=== PATIENT | male | born 1940 | race Two or more races ===

== ENCOUNTER 2020-09-30 21:36 | Emergency (ER) | payer MEDICARE, SELFPAY ==
--- NOTE | 2020-09-30 | ECG_ITS ---
Test Reason : CHEST PAIN Blood Pressure : / mmHG Vent. Rate : 056 BPM Atrial Rate : 056 BPM P-R Int : 196 ms QRS Dur : 082 ms QT Int : 424 ms P-R-T Axes : 043 006 039 degrees QTc Int : 409 ms Sinus bradycardia Otherwise normal ECG When compared with ECG of 22-OCT-2017 10:24, No significant change was found Referred By: Generic ED Physician Electronically Signed By:YOLANDA LICONA
--- NOTE | ~2020-09-30 | XR_ITS ---
EXAMINATION: XR CHEST CLINICAL INFORMATION: Chest pain COMPARISON: 10/22/2018 TECHNIQUE: 2 views of the chest were obtained. FINDINGS: The lungs are clear with no focal consolidation. No evidence of pneumothorax, pulmonary edema, or pleural effusions. Cardiac size is within normal limits. The thoracic aorta is tortuous. No acute osseous findings are seen. XR/XR chest 2V IMPRESSION: No acute cardiopulmonary findings.
[2020-09-30 22:24] VITALS: BP 140/80; PULSE 55; RESP 18; TEMP 36.6; O2SAT 18; BMI 27.3
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
[2020-10-01 01:14] LABS: MANUAL DIFF FLAG NO
[2020-10-01 01:16] LABS: Basophils Percent Auto 0.2 % (0-2); Eosinophils Absolute Auto 0.2 X10*3/uL (0.0-0.4); Eosinophils Percent Auto 2.2 % (0-4); Hematocrit 41.9 % (42-52); Hemoglobin 14.4 g/dl (14.0-18.0); Imm Gran Abs Auto 0.01 X10*3/uL (0.00-0.03); Imm Gran Pct Auto 0.1 % (0.0-0.4); Lymphocytes Percent Auto 22.6 % (20-40); Mean Corpuscular HGB Conc 34.4 g/dl (31.0-36.0); Mean Corpuscular Volume 93.1 fL (80-98); Mean Platelet Volume 11.1 fL (9.4-12.4); Monocytes Absolute Auto 0.6 X10*3/uL (0.1-1.2); Monocytes Percent Auto 6.6 % (2-11); Neutrophils Absolute Auto 5.9 X10*3/uL (2.0-8.3); Neutrophils Percent Auto 68.3 % (45-73); Platelet Count 158 X10*3/uL (160-400); Red Cell Distribution Width 12.6 % (11.0-16.0); White Blood Count 8.6 X10*3/uL (4.8-10.8)
[2020-10-01 01:39] LABS: Blood Urea Nitrogen 18 mg/dL (9-16); Calcium 9.6 mg/dL (8.4-10.2); Creatinine Clr Calc Pharmacy 59.1; Estimated Glomerular Filt Rate > 60; Glucose Random 102 mg/dL (60-115)
[2020-10-01 01:45] LABS: Troponin-I High Sensitivity 4.8 ng/L (<3.5-35.0)
[2020-10-01 02:10] LABS: Anion Gap 12 (12-20); Carbon Dioxide 29 mmol/L (22-29); Chloride 105 mmol/L (96-108); Potassium 3.9 mmol/L (3.3-5.1); Sodium 142 mmol/L (135-145)
== END 2020-10-01 02:55 | disposition home or self-care (01) ==
PROVIDERS: Emergency Provider Emergency Medicine; PCP Internal Medicine
DX: R07.89 Other chest pain (principal); R00.1 Bradycardia, unspecified; Z73.3 Stress, not elsewhere classified; Z63.0 Problems in relationship with spouse or partner; I10 Essential (primary) hypertension; E78.5 Hyperlipidemia, unspecified
CPT/HCPCS: 36415; 71046; 80048; 84484; 85025; 93005; 99283; 99284

== ENCOUNTER 2020-10-05 13:03 | Outpatient (REF) | payer MEDICARE, SELFPAY ==
[2020-10-05 13:53] LABS: Alanine Aminotransferase 20 U/L (0-40); Albumin Level 4.3 g/dL (3.5-5.0); Alkaline Phosphatase 94 U/L (39-117); Anion Gap 14 (12-20); Aspartate Amino Transferase 21 U/L (5-37); Bilirubin Total 1.1 mg/dL (0.0-1.0); Blood Urea Nitrogen 19 mg/dL (9-16); Carbon Dioxide 27 mmol/L (22-29); Chloride 105 mmol/L (96-108); Estimated Glomerular Filt Rate > 60; Glucose Random 100 mg/dL (60-115); Potassium 3.9 mmol/L (3.3-5.1); Sodium 142 mmol/L (135-145); Total Protein 7.1 g/dL (6.5-8.0)
== END 2020-10-05 13:04 | disposition home or self-care (01) ==
LOC: HO.LAB 13:03
PROVIDERS: PCP Internal Medicine; Visit Provider Internal Medicine
DX: M10.9 Gout, unspecified (principal)
CPT/HCPCS: 36415; 80053

== ENCOUNTER → 2020-11-19 13:39 | Outpatient (BNVA) | payer MEDICARE, SELFPAY | PROVIDERS: PCP Internal Medicine; Referring Provider Internal Medicine; Visit Provider Internal Medicine | DX: R07.2 Precordial pain (principal); I63.9 Cerebral infarction, unspecified; Q24.8 Other specified congenital malformations of heart; G47.33 Obstructive sleep apnea (adult) (pediatric) | CPT/HCPCS: 93005; 99212 ==

== ENCOUNTER → 2020-11-27 08:34 | Outpatient (BNVA) | payer MEDICARE, SELFPAY | PROVIDERS: PCP Internal Medicine; Visit Provider Nurse Practitioner Family | CPT/HCPCS: Q3014 ==

== ENCOUNTER 2020-11-28 15:55 | Outpatient (REF) | payer MEDICARE, SELFPAY ==
--- NOTE | ~2020-11-28 | MR_ITS ---
EXAMINATION: MR BRAIN WITHOUT CONTRAST CLINICAL INFORMATION: Memory loss. Headaches. COMPARISON: CT head dated 09/09/2018 TECHNIQUE: MRI of the brain was obtained using routine sequences without contrast. FINDINGS: No areas of abnormally restricted diffusion within the brain parenchyma to suggest acute or subacute ischemia. There are a few scattered foci of subcortical white matter T2 prolongation statistically related to microangiopathic gliosis. Old left frontal lobe white matter lacunar infarct. No transcortical infarcts. No pathological magnetic susceptibility artifact is demonstrated. There is no intracranial mass, mass effect, or shift of midline structures. No abnormal extra axial fluid collection Mild generalized brain parenchymal volume loss. No atrophy pattern to suggest a specific type of dementia. No evidence of hydrocephalus. Posterior fossa structures are normal. The craniocervical junction is normal. Midline structures including the posterior pituitary bright spot are normal. The intracranial vascular flow voids including the major dural venous sinuses are preserved. Mastoid air cells are clear. The visualized paranasal sinuses are well-aerated. Mild mucosal thickening within the frontal sinuses and ethmoid air cells anteriorly. Aphakic globes. MR/MR head/brain wo con IMPRESSION: No acute or subacute intracranial pathology. Moderate chronic white matter small vessel ischemic changes. Generalized brain parenchymal volume loss without evidence of hydrocephalus.
== END 2020-11-28 15:56 | disposition home or self-care (01) ==
LOC: HO.MRI 15:55
PROVIDERS: PCP Internal Medicine; Visit Provider Internal Medicine
DX: I63.9 Cerebral infarction, unspecified (principal)
CPT/HCPCS: 70551

== ENCOUNTER → 2020-11-29 09:52 | Outpatient (REF) | payer MEDICARE, SELFPAY ==
--- NOTE | 2020-11-29 09:55 | CA_ITS ---
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 Study Quality: Fair ECG Rhythm: Sinus Conclusions: - 1. Normal LV systolic function with impaired relaxation filling pattern with elevated velocity across LVOT, most likely increased stroke volume 2. Mild aortic regurgitation 3. Mildly dilated ascending aorta 4. Normal RV systolic pressure 5. No pericardial effusion Findings Left Ventricle Normal left ventricular size, thickness, and systolic function. The visually estimated ejection fraction is between 60-65%. Spectral Doppler is indicative of an impaired relaxation filling pattern. E/E prime ratio is between 8 and 15 consistent with indeterminate filling pressures. Right Ventricle Normal right ventricular cavity size and systolic function. Atria The left atrium is mildly dilated. There is no evidence of interatrial shunt. The right atrium is likely dilated. Aortic Valve Normal aortic valve structure and function. There is no aortic valve stenosis. There is mild aortic valve regurgitation. Mitral Valve Normal mitral valve structure and function. There is trace mitral valve regurgitation. There is no mitral valve stenosis. Pulmonic Valve The pulmonic valve is likely normal. There is trace pulmonic valve regurgitation. Tricuspid Valve Normal tricuspid valve structure. There is trace tricuspid valve regurgitation. The right ventricular systolic pressure is normal. The right ventricular systolic pressure is 27 mmHg. Normal right atrial pressure. There is no evidence of pulmonary hypertension. Great Vessels The pulmonary artery was not well visualized. Venous The inferior vena cava is normal in size and collapses greater than 50% with inspiration. Pericardium/Pleural There is no evidence of pericardial effusion. Prior Study Comparison No significant change compared to prior study dated: 01/03/2019. Measurements 2D Linear Measurements IVSd: 0.97 0.6-0.9/0.6-1.0 cm LVIDd: 3.50 3.9-5.3/4.2-5.9 cm LVIDd Index: 1.64 2.4-3.2/2.2-3.1 cm/m2 LVIDs: 2.43 2.0-3.6 cm LVPWd: 0.98 0.7-1.1 cm Ao Root: 4.40 2.1-3.5 cm LA Diam: 3.20 2.7-3.8/3.0-4.0 cm LAIDs Index: 1.50 1.5-2.3 cm/m2 LV Mass: 123.76 67-162/88-224 g LV Mass Index: 58.11 43-95/49-115 g/m2 LVOT Diam: 2.20 3.0+(-)1.3 cm 2D Systolic Function EF 4C: 62.20 >55% EF 2C: 53.50 >55% EF BiP: 58.20 >55% Mitral Valve MV Pk E: 0.74 MV PK A: 0.93 MV Decel Time: 221.00 E/A: 0.80 PHT: 65.00 MVA PHT: 3.38 Decel Montague: 3.34 Aortic Valve AoV Pk Ba: 2.18 AoV Mn Ba: 1.51 AoV VTI: 0.45 AoV Pk Grad: 19.00 Aov Mn Grad: 11.00 GE Cont.VTI: 3.95 AI Pk Ba: 4.38 AI [place]ague: 1.65 LVOT LVOT Pk Ba: 1.99 LVOT Mn Ba: 1.42 LVOT VTI: 0.46 LVOT Pk Grad: 16.00 LVOT Mn Grad: 9.00 LVOT Diam: 2.20 LVOT Area: 3.80 Diastolic Function MV Pk E: 0.74 MV Pk A: 0.93 E/A: 0.80 Tricuspid Valve TR Pk Ba: 2.44 TR Pk Grad: 24.00 RA Press: 3.00 RVSP: 27.00 Great Vessels Aorta Ao Root-2D: 4.40 2.0-3.7 cm Sinus of Valsalva: 4.40 2.0-3.5 cm Ao Asc: 4.20 2.1-3.4 cm Ao Arch: 3.10 Updated in Other Vendor System with Status of Final Junior Brown MD electronically signed on 11/30/2020 2:48:08 PM with status of Final
== END ==
LOC: HO.CARD 09:52
PROVIDERS: Visit Provider Internal Medicine
DX: I25.10 Atherosclerotic heart disease of native coronary artery without angina pectoris (principal); Q24.8 Other specified congenital malformations of heart; Z86.73 Personal history of transient ischemic attack (TIA), and cerebral infarction without residual deficits
CPT/HCPCS: 93306

== ENCOUNTER → 2020-12-25 13:56 | Outpatient (BNVA) | payer MEDICARE, SELFPAY | PROVIDERS: PCP Internal Medicine; Referring Provider Internal Medicine; Visit Provider Internal Medicine | DX: I63.9 Cerebral infarction, unspecified (principal); Q24.8 Other specified congenital malformations of heart; G47.33 Obstructive sleep apnea (adult) (pediatric); R07.2 Precordial pain | CPT/HCPCS: 99212 ==

== ENCOUNTER → 2021-01-02 15:08 | Outpatient (REF) | payer MEDICARE, SELFPAY | LOC: HO.SL 15:08 | PROVIDERS: PCP Internal Medicine; Visit Provider Nurse Practitioner Family | DX: G47.33 Obstructive sleep apnea (adult) (pediatric) (principal); Z86.73 Personal history of transient ischemic attack (TIA), and cerebral infarction without residual deficits | CPT/HCPCS: 95806 ==

== ENCOUNTER 2021-03-20 09:09 | Outpatient (REF) | payer MEDICARE, SELFPAY ==
[2021-03-20 09:59] LABS: Cholesterol 145 mg/dL; HDL Cholesterol 38 mg/dL; LDL Cholesterol Calculated 79 mg/dl; Triglycerides 143 mg/dL; Uric Acid 8.8 mg/dL (3.4-7.0)
[2021-03-20 10:20] LABS: PSA,Total (Free>4and<10) 0.68 ng/mL (0.00-4.00)
[2021-03-20 10:52] LABS: Erythrocyte Sedimentation Rate 7 MM/HR (0-15)
== END 2021-03-20 09:10 | disposition home or self-care (01) ==
LOC: HO.LAB 09:09
PROVIDERS: Internal Medicine; PCP Internal Medicine; Visit Provider Internal Medicine
DX: M10.9 Gout, unspecified (principal); E78.5 Hyperlipidemia, unspecified; Z12.5 Encounter for screening for malignant neoplasm of prostate
CPT/HCPCS: 36415; 80061; 84153; 84550; 85652

== ENCOUNTER → 2021-04-10 10:09 | Outpatient (REF) | payer MEDICARE, SELFPAY ==
--- NOTE | 2021-04-10 | ECG_ITS ---
Test Reason : cp Blood Pressure : / mmHG Vent. Rate : 073 BPM Atrial Rate : 073 BPM P-R Int : 206 ms QRS Dur : 072 ms QT Int : 348 ms P-R-T Axes : 068 045 059 degrees QTc Int : 383 ms Normal sinus rhythm Nonspecific T wave abnormality Abnormal ECG When compared with ECG of 30-SEP-2020 21:47, Nonspecific T wave abnormality, worse in Lateral leads Referred By: Milagro Lott Electronically Signed By:YOLANDA LICONA
== END ==
LOC: HO.CARD 10:09
PROVIDERS: PCP Internal Medicine; Visit Provider Nurse Practitioner Family
DX: R07.9 Chest pain, unspecified (principal)
CPT/HCPCS: 93005

== ENCOUNTER 2021-04-16 10:21 | Emergency (ER) | payer MEDICARE, SELFPAY ==
--- NOTE | ~2021-04-16 | XR_ITS ---
EXAMINATION: XR CHEST CLINICAL INFORMATION: Cough. COMPARISON: Chest 07/28/2020 TECHNIQUE: Frontal view of the chest was obtained. FINDINGS: No significant abnormality is noted involving the heart, lungs, mediastinum, bony thorax or soft tissues. XR/XR chest 1V IMPRESSION: Unremarkable chest examination.
[2021-04-16 10:25] VITALS: BP 124/67; PULSE 69; RESP 18; TEMP 36.3; O2SAT 96; BMI 27.1
--- NOTE | 2021-04-16 11:55 | ED.BACK ---
HPI - Back Pain/Injury General Chief Complaint: General Medical Stated Complaint: Back pain Time Seen by Provider: 04/16/21 11:51 Source: patient and interpreter deaf Mode of arrival: ambulatory Limitations: no limitations Related Data Home Medications Medication Instructions Recorded Confirmed alfuzosin 10 mg tablet,extended 10 mg PO DAILY 04/10/21 04/10/21 release 24 hr oxybutynin chloride 10 mg 10 mg PO DAILY 04/10/21 04/10/21 tablet,extended release 24 hr Previous Rx's Medication Instructions Recorded aspirin 81 mg tablet,delayed 81 mg PO DAILY 90 Days #90 tab 11/06/20 release (Adult Low Dose Aspirin) tamsulosin 0.4 mg capsule 0.4 mg PO BEDTIME 90 Days #90 cap 11/06/20 atorvastatin 10 mg tablet 10 mg PO BEDTIME 90 Days #90 tab 12/31/20 Allergies Allergy/AdvReac Type Severity Reaction Status Date / Time Iodinated Contrast Media Allergy Mild PATIENT Verified 04/16/21 10:25 [IV CONTRAST] STATES HISTORY OF IV REACTION FROM [facility] terazosin AdvReac Intermediate blurry Verified 04/16/21 10:25 vision Penicillins AdvReac Mild WEAKNESS Verified 04/16/21 10:25 [facility] Past Medical History Attestation statement: The following information was validated with the patient. 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 Father No problems noted. Social History Social History Housing: Apartment Alcohol intake: never Patient Tobacco Use Status: Never used Tobacco e-Cigarette/Vaping Use: Never Used Second Hand Smoke Exposure: No service: No Current occupational status: disabled Cognitive needs: No Hearing needs: No Vision needs: No Physical Exam Vital Signs: Vital Signs: Last Vital Signs Temp 97.3 F 04/16/21 10:25 Pulse 69 04/16/21 10:25 Resp 18 04/16/21 10:25 BP 124/67 04/16/21 10:25 Pulse Ox 96 04/16/21 10:25 BMI result Body Mass Index 27.1 Discharge Plan Discharge Prescriptions: No Action atorvastatin 10 mg tablet 10 mg PO BEDTIME 90 Days Qty: 90 RF: 1 aspirin [Adult Low Dose Aspirin] 81 mg tablet,delayed release (DR/EC) 81 mg PO DAILY 90 Days Qty: 90 RF: 1 tamsulosin 0.4 mg capsule 0.4 mg PO BEDTIME 90 Days Qty: 90 RF: 1 oxybutynin chloride 10 mg tablet extended release 24hr 10 mg PO DAILY RF: 0 alfuzosin 10 mg tablet extended release 24 hr 10 mg PO DAILY RF: 0
--- NOTE | 2021-04-16 12:13 | ED.URI ---
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 Mode of arrival: ambulatory Limitations: no limitations History of Present Illness HPI Narrative: cough, headaches x 1 day not vaccinated no sick contacts MD elicited complaint: cough and other (headaches) Onset (ago): day(s) (1) Consistency: intermittent Severity: mild Able to tolerate fluids by mouth: Yes Exacerbating factors: other (coughing) Relieving factors: OTC cold medicine Context: other (did not receive his COVID vaccine) Associated symptoms: headache, rhinorrhea, cough and other (reports chronic back pain nothing new no change from baseline no GI/ symptoms) Treatments prior to arrival: cold medicine Related Data Home Medications Medication Instructions Recorded Confirmed alfuzosin 10 mg tablet,extended 10 mg PO DAILY 04/10/21 04/10/21 release 24 hr oxybutynin chloride 10 mg 10 mg PO DAILY 04/10/21 04/10/21 tablet,extended release 24 hr Previous Rx's Medication Instructions Recorded aspirin 81 mg tablet,delayed 81 mg PO DAILY 90 Days #90 tab 11/06/20 release (Adult Low Dose Aspirin) tamsulosin 0.4 mg capsule 0.4 mg PO BEDTIME 90 Days #90 cap 11/06/20 atorvastatin 10 mg tablet 10 mg PO BEDTIME 90 Days #90 tab 12/31/20 Allergies Allergy/AdvReac Type Severity Reaction Status Date / Time Iodinated Contrast Media Allergy Mild PATIENT Verified 04/16/21 10:25 [IV CONTRAST] STATES HISTORY OF IV REACTION FROM [facility] terazosin AdvReac Intermediate blurry Verified 04/16/21 10:25 vision Penicillins AdvReac Mild WEAKNESS Verified 04/16/21 10:25 Review of Systems Review of Systems: Constitutional : No Weight loss, No Fever, No Chills, ENT/Mouth : No Hearing loss, No Ear Pain, No Nasal Congestion, No Sinus Pain, No Hoarseness, No sore throat, No Rhinorrhea, No Swallowing Difficulty Cardiovascular : No Chest Pain, No SOB Respiratory : pos Cough, No Dyspnea Gastrointestinal : No Nausea, No Vomiting, No Diarrhea, No abdominal Pain, No Hematochezia, No Melena Genitourinary : No Dysuria, No Urinary Frequency, No Hematuria, No Urinary Incontinence, Musculoskeletal : positive back pain Skin : No Skin Lesions, No rash Neuro : No Weakness, No Numbness, No Paresthesias, no loss of bowel or bladder incontinence, no saddle anesthesia, pos headache All other systems reviewed are negative [facility] Past Medical History Attestation statement: The following information was validated with the patient. 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 Father No problems noted. Social History Social History Housing: Apartment Alcohol intake: never Patient Tobacco Use Status: Never used Tobacco e-Cigarette/Vaping Use: Never Used Second Hand Smoke Exposure: No Use of substances other than those prescribed or required for medical reasons: No Advance Directives: No Advance Directives Information Provided: Yes service: No Current occupational status: disabled Cognitive needs: No Hearing needs: No Vision needs: No Physical Exam Vital Signs: Vital Signs: Last Vital Signs Temp 98.0 F 04/16/21 12:42 Pulse 62 04/16/21 12:42 Resp 16 04/16/21 12:42 BP 134/69 04/16/21 12:42 Pulse Ox 98 04/16/21 12:42 BMI result Body Mass Index 27.1 Appearance: Alert. Oriented X3. No acute distress. Eyes: Pupils equal, round and reactive to light. ENT: Pharynx normal. Neck: Normal inspection. Neck supple. no meningeal signs CVS: Normal heart rate and rhythm. Pulses normal. Respiratory: No respiratory distress. Breath sounds normal. Abdomen: Soft and non-tender. Skin: Skin warm and dry. Normal skin color. Normal skin turgor. Extremities: No lower extremity edema. No calf ttp Neuro: Oriented X 3. No motor deficit. No sensory deficit. Course Course Course Narrative: mab referral filled out for patient MDM - URI/Sore Throat MDM Narrative Medical decision making narrative: 80 yo male with hx of HLD, CVA, BRYAN, BPH here with c/o cough and headache x 1 day he is not vaccinated - at this time will need COVID swab, CXR, he has no fever no oral anticoagulants normal neuro exam doubt SAH/PRODUCTION SUPERVISOR infection. Dispo per results and findings. Lab Data Labs: Lab Results 04/16/21 Range/Units 12:13 COVID-19 (PHANI) Positive A (Negative) COVID-19 Clin Com See Note Discharge Plan Discharge Clinical Impression: COVID-19 Patient Disposition: Home, Self-Care Instructions: COVID-19 (Coronavirus Disease 2019) (ED) Additional Instructions: return to ED for any worsening symptoms or concerns wear a mask, quarantine, protect others COVID POSITIVE Prescriptions: No Action atorvastatin 10 mg tablet 10 mg PO BEDTIME 90 Days Qty: 90 RF: 1 aspirin [Adult Low Dose Aspirin] 81 mg tablet,delayed release (DR/EC) 81 mg PO DAILY 90 Days Qty: 90 RF: 1 tamsulosin 0.4 mg capsule 0.4 mg PO BEDTIME 90 Days Qty: 90 RF: 1 oxybutynin chloride 10 mg tablet extended release 24hr 10 mg PO DAILY RF: 0 alfuzosin 10 mg tablet extended release 24 hr 10 mg PO DAILY RF: 0 Print Language: Kinyarwanda
[2021-04-16 12:26] LABS: COVID-19 Test Positive (Negative); IDNOW Serial# 9DD0AD1C
[2021-04-16] MEDS: HYDROcodone/Homat 5/1.5/5 ML 5 ML SYRUP PO (12:29)
[2021-04-16] MEDS: Acetaminophen 325 MG TABLET 650 MG PO (12:29)
[2021-04-16 12:42] VITALS: BP 134/69; PULSE 62; RESP 16; TEMP 36.7; O2SAT 98
== END 2021-04-16 14:37 | disposition home or self-care (01) ==
PROVIDERS: Emergency Provider Emergency Medicine; PCP Internal Medicine
DX: U07.1 COVID-19 (principal); R05.9 Cough, unspecified; R51.9 Headache, unspecified; Z79.899 Other long term (current) drug therapy
CPT/HCPCS: 36415; 71045; 87635; 99283; 99284

== ENCOUNTER 2022-11-19 08:54 | Outpatient (AMB) | payer MEDICARE, SELFPAY ==
[2022-11-19 09:02] VITALS: BP 114/70; PULSE 57; BMI 26.3
--- NOTE | 2022-11-19 09:02 | A.OFFVIS_ITS ---
Intake Vital Signs 11/19/22 09:02 Height 6 ft Weight 194 lb 0.108 oz BMI 26.3 BP 114/70 Blood Pressure Location Lt brachial Position Sitting Pulse 57 Intake Visit Reasons: R/S overdue follow up Intake Note: overdue follow up Research Executive Required: Yes Research Executive Language: Piping Engineer Name: Geovanni [id number] Accompanied by: Self / Same As Patient Allergies Iodinated Contrast Media [IV CONTRAST] Allergy (Mild, Verified 11/19/22 09:02) PATIENT STATES HISTORY OF IV REACTION FROM [facility] terazosin Adverse Reaction (Intermediate, Verified 11/19/22 09:02) blurry vision Penicillins Adverse Reaction (Mild, Verified 11/19/22 09:02) WEAKNESS Medication List - Last Reconciled 11/19/22 by Ppee Goncalves MD aspirin (Adult Low Dose Aspirin) 81 mg PO DAILY 90 days atorvastatin 10 mg PO BEDTIME 90 days oxybutynin chloride ER 10 mg PO DAILY tamsulosin 0.4 mg PO BEDTIME 90 days HPI HPI Comments History of Present Illness Details [place] returns for follow-up. Last seen in 2020. To recall, around that time he had stroke. He was admitted to [facility] then with left-sided weakness and numbness and was diagnosed with stroke. It appears that he underwent thrombolytics. He continued to have some symptoms of discomfort in the left side of head, neck and left arm, thigh possibly all from the stroke itself. Still has the same symptoms. No exertional angina. Another visit to [facility] in August of this year where there is a diagnosis of TIA. [facility] Medical History Atypical chest pain BPH (benign prostatic hyperplasia) Dyslipidemia Heart problem HLD (hyperlipidemia) Left sided lacunar infarction Left ventricular outflow tract obstruction Podagra Surgical History No history of previous surgery Family History Mother No problems noted. Father No problems noted. Social History Housing: Apartment Alcohol intake: never Patient Tobacco Use Status: Never used Tobacco e-Cigarette/Vaping Use: Never Used Second Hand Smoke Exposure: No service: No Current occupational status: disabled Cognitive needs: No Hearing needs: No Vision needs: No Review of Systems Const Denies weakness ENT Denies dizziness Card Denies chest pain, Denies chest pain with activity, Denies syncope, Denies rapid heart rate, Denies pedal edema, Denies edema, Denies leg edema, Denies lightheadedness, Denies palpitations, Denies dyspnea, Denies dyspnea on exertion and Denies orthopnea Resp Denies cough, Denies dyspnea and Denies dyspnea on exertion GI Denies hematochezia and Denies change in stool character Musc Denies abnormal gait, Denies muscle cramps, Denies muscle weakness, Denies numbness, Denies radiating pain into limb and Denies tingling Neuro Denies abnormal gait, Denies dizziness, Denies syncope, Denies numbness, Denies tingling and Denies weakness Endo Denies palpitations Physical Exam Vital Signs: Last Vital Signs Pulse 57 11/19/22 09:02 BP 114/70 11/19/22 09:02 BMI result Body Mass Index 26.3 Const General: comfortable and no acute distress Orientation/consciousness: patient oriented x3 HEENT Other: Unremarkable Head: Yes normal to inspection Neck Neck: Yes normal visual inspection Chest Chest palpation & inspection: normal inspection of the chest Resp Auscultation: clear to auscultation bilaterally Cardio Palpation: normal PMI Heart sounds: S1 normal heart sound present, S2 normal heart sound present, no gallops, Murmur heart sound present systolic II/ and no rubs GI Palpation (GI): Soft to palpation Back/Spine/Pelvis Other: unremarkable Skin General skin exam: no rashes or lesions noted Neuro General: patient oriented x3 Extrem General: Yes normal to inspection Psych Mental Status: mental status grossly normal Office Procedures EKG Details: EKG with sinus rhythm at 57/Min; no significant ST-T changes and otherwise unremarkable[place]. [address]-[id number], Complete Assessment & Plan Assessment & Plan (1) Precordial chest pain: Code(s): R07.2 - Precordial pain Plan: His left-sided pain is chronic and unchanged. This involves multiple areas including head, neck, left side of the body, left leg extra which is side of stroke. Does not sound like angina. He had a cardiac catheterization 2013 and that showed mild disease only without any clear obstructive lesions. He had one further catheterization in 2016 that was also unremarkable. Will hold further workup at this time. (2) Left ventricular outflow tract obstruction: Code(s): Q24.8 - Other specified congenital malformations of heart Plan: In the past, echocardiograms had shown LVOT obstruction. In the most recent echocardiogram from [facility], stroke volume is still high, based on LVOT VTI. However, LVEF described as 60-65%. No wall motion abnormalities. No specific management. (3) Cerebrovascular accident (CVA) of right thalamus: Code(s): I63.9 - Cerebral infarction, unspecified Plan: [facility] documentation reviewed. CT head from 2020 with no hemodynamically significant stenosis of the extracranial internal carotid or vertebral arteries and there was also no acute intracranial large vessel occlusion. Per Neurology consultation, thought to be small vessel disease. Suspected infarct in the right thalamus/capsular infarct. MRI does not show any acute pathology but only moderate chronic small vessel ischemic changes. In the most recent discharge summary, MRI stated to be negative. It seems neurology saw him and recommended just aspirin. Plan Total time spent including review of [facility] documentation, counseling, documentation, coordination of care-32 minutes. Coding Level of Care Code Est Pt Level 4 (49293) Diagnoses Precordial chest pain R07.2 Left ventricular outflow tract obstruction Q24.8 Cerebrovascular accident (CVA) of right thalamus I63.9 CPT Codes EKG - CPT: 30960-[id number], Complete ([id number])
== END 2022-11-19 09:34 | disposition home or self-care (01) ==
PROVIDERS: PCP Internal Medicine; Visit Provider Internal Medicine
DX: R07.2 Precordial pain (principal); Q24.8 Other specified congenital malformations of heart; I63.9 Cerebral infarction, unspecified
CPT/HCPCS: 93010; 99214

== ENCOUNTER → 2022-11-19 08:54 | Outpatient (BNVA) | payer MEDICARE, SELFPAY | PROVIDERS: PCP Internal Medicine; Visit Provider Internal Medicine | DX: I44.0 Atrioventricular block, first degree (principal); R07.2 Precordial pain; Q24.8 Other specified congenital malformations of heart; I63.81 Other cerebral infarction due to occlusion or stenosis of small artery; G81.94 Hemiplegia, unspecified affecting left nondominant side; Z79.82 Long term (current) use of aspirin | CPT/HCPCS: 93005; 99212 ==

== ENCOUNTER 2022-12-31 13:59 | Outpatient (AMB) | payer MEDICARE, SELFPAY ==
[2022-12-31 14:02] VITALS: BP 118/74; BMI 26.4
--- NOTE | 2022-12-31 14:02 | A.OFFPC_ITS ---
Vital Signs 12/31/22 14:02 Height 6 ft Weight 195 lb BMI 26.4 BP 118/74 Blood Pressure Location Lt brachial Position Sitting Intake Visit Reasons: HLD Intake Note: Patient here for a follow up HLD Electrical Technician Required: No Accompanied by: Spouse Allergies Iodinated Contrast Media [IV CONTRAST] Allergy (Mild, Verified 12/31/22 14:13) PATIENT STATES HISTORY OF IV REACTION FROM [facility] terazosin Adverse Reaction (Intermediate, Verified 12/31/22 14:13) blurry vision Penicillins Adverse Reaction (Mild, Verified 12/31/22 14:13) WEAKNESS Medication List - Last Reconciled 12/31/22 by Nathalie Damon MD aspirin (Adult Low Dose Aspirin) 81 mg PO DAILY 90 days atorvastatin 10 mg PO BEDTIME 90 days tamsulosin 0.4 mg PO BEDTIME 90 days Tobacco use date assessed: 09/16/22 Fall risk assessment: 2 + Falls in past year Last assessed Fall Risk: 12/31/22 Dental Screening Dental Screen Date: 12/31/22 Did you have a dental visit in the last 12 months?: No Did you have a dental problem in the last 6 months where you did not have access to dental care?: No Was dental information given to patient?: Patient has dentist HPI HPI Comments History of Present Illness Details This is an 82-year-old male with cerebrovascular accident of right thalamus, coronary artery disease, dyslipidemia, BPH and obstructive sleep apnea that comes today accompanied by female partner for follow-up on his conditions. He was last seen 2020. On aspirin for secondary prophylaxis of stroke and coronary artery disease. His LDL goal should be less than 70 and lipid panel will be order. Has BPH stable with tamsulosin and would like to see Urology. Also has obstructive sleep apnea but has not started CPAP machine yet. Denies any chest pain. Complains of some dyspnea on exertion. Echocardiogram done showed ejection fraction 60-65%. [facility] Medical History (Updated 12/31/22 @ 14:24 by Nathalie Damon MD) Atypical chest pain BPH (benign prostatic hyperplasia) Dyslipidemia Heart problem HLD (hyperlipidemia) Left sided lacunar infarction Left ventricular outflow tract obstruction Podagra Surgical History No history of previous surgery Family History Mother No problems noted. Father No problems noted. Social History Housing: Apartment Alcohol intake: never Patient Tobacco Use Status: Never used Tobacco e-Cigarette/Vaping Use: Never Used Second Hand Smoke Exposure: No service: No Current occupational status: disabled Cognitive needs: No Hearing needs: No Vision needs: No Questionnaire PHQ-9 Over the last 2 weeks, how often have you been bothered by any of the following problems? 1. Little interest or pleasure in doing things: not at all 2. Feeling down, depressed, or hopeless: not at all 3. Trouble falling or staying asleep, or sleeping too much: not at all 4. Feeling tired or having little energy: not at all 5. Poor appetite or overeating: not at all 6. Feeling bad about yourself - or that you are a failure or have let yourself or your family down: not at all 7. Trouble concentrating on things, such as reading the newspaper or watching television: not at all 8. Moving or speaking so slowly that other people could have noticed. Or the opposite - being so fidgety or restless that you have been moving around a lot more than usual: not at all 9. Thoughts that you would be better off or of hurting yourself in some way: not at all Total score: 0 Depression Screening Interpretation: Negative 38996 - PHQ-9 Billing: Yes Source: Developed by Drs. Santos Celestin, Jennie Mendez, Guillermo Leonard and colleagues, with an educational nicolas from [employer]. Thrive Questionnaire Date Thrive assessed: 12/31/22 I am a: Patient What is your living situation today?: I have a steady place to live Within the past 12 months, did the food you bought not last and you didn't have the money to get more?: Never true Within the past 12 months, did you worry whether your food would run out before you got money to buy more?: Never true Do you have trouble paying for medicines?: No Do you have trouble getting transportation to medical appointments?: No Do you have trouble paying your heating and electricity bill?: No Do you have trouble taking care of your child, family member or friend?: No Do you have trouble with day-to-day activities such as bathing, preparing meals, shopping, managing finances, etc.?: No Are you currently unemployed and looking for a job?: No Are you interested in more education?: No Please select the resources that you would like help with: None Currently or been in a relationship where the following occur: no concerns reported AUDIT C Alcohol Use Questionnaire (AUDIT-C) 1. How often do you have a drink containing alcohol?: Never Total Score: 0 Score Reviewed/Action Taken: No DANISH-7 AMB Questionnaire DANISH-7 Date DANISH - 7 assessed: 12/31/22 Feeling nervous, anxious, or on edge: 0 = Not at all Not being able to stop or control worryin = Not at all Worrying too much about different things: 0 = Not at all Trouble relaxin = Not at all Being so restless that it is hard to sit still: 0 = Not at all Becoming easily annoyed or irritable: 0 = Not at all Feeling afraid as if something awful might happen: 0 = Not at all Total DANISH-7 score (0-4 normal; 5-9 mild; 10-14 moderate; 15-21 severe): 0 Source: Developed by Drs. Santos Celestin, Jennie Mendez, Guillermo Leonard and colleagues, with an educational nicolas from [employer]. DANISH-7 Assessment Billing DANISH-7 Assessment Tool: DANISH-7 Assessment 78881 Review of Systems Const All systems reviewed & are unremarkable except as noted in HPI and below Eyes Reports no additional complaints, Denies change in vision and Denies other visual disturbances Card Denies chest pain at rest, Denies chest pain with activity, Denies edema, Denies irregular heart rhythm, Denies claudication, Denies dyspnea, Denies dyspnea on exertion, Denies orthopnea, Denies paroxysmal nocturnal dyspnea and Denies slow heart rate Resp Denies cough, Denies dyspnea and Denies dyspnea on exertion GI Denies abdominal pain, Denies change in bowel habits, Denies excessive flatus, Denies nausea and Denies vomiting Denies urinary hesitancy, Denies urinary incontinence and Denies urinary urgency Musc Denies abnormal gait, Denies atrophy, Denies deformity and Denies limited range of motion Skin/Breast Denies bleeding lesions, Denies changing lesions and Denies rash Neuro Denies abnormal gait and Denies lack of coordination Physical exam (Primary Care) Vital Signs: Last Vital Signs BP 118/74 12/31/22 14:02 BMI result Body Mass Index 26.4 Tobacco/Smoking Status: Tobacco use Status Tobacco use date assessed 09/16/22 12/31/22 14:09 Patient Tobacco Use Status Never used Tobacco 12/31/22 14:09 e-Cigarette/Vaping Use Never Used 12/31/22 14:09 PHQ-9: PHQ-9 Score PHQ-9: Total score 0 12/31/22 14:09 Depression Screening Interpretation: Negative Thrive Assessment: Date of Thrive Assessment Date Thrive assessed 12/31/22 12/31/22 14:09 Currently or been in a relationship where the following occur: no concerns reported Eyes General: appearance normal, both eyes and all related structures Eyelids: Yes eyelids normal Conjunctivae: conjunctivae normal Neck Neck: Yes normal visual inspection and Yes supple Resp Effort & Inspection: normal respiratory effort Auscultation: clear to auscultation bilaterally Cardio Jugular venous distension: no JVD Rate: regular rate Rhythm: regular rhythm Heart sounds: S1 normal heart sound present and S2 normal heart sound present Extrem General: Yes full ROM Assessment and Plan Assessment & Plan (1) CAD (coronary artery disease): Code(s): I25.10 - Atherosclerotic heart disease of [place] coronary artery without angina pectoris Plan: Continue aspirin. (2) Cerebrovascular accident (CVA) of right thalamus: Code(s): I63.9 - Cerebral infarction, unspecified Plan: Continue aspirin. (3) BPH (benign prostatic hyperplasia): Code(s): N40.0 - Benign prostatic hyperplasia without lower urinary tract symptoms Qualifiers: Lower urinary tract symptom presence: symptoms present Lower urinary tract symptom detail: nocturia Qualified Code(s): N40.1 - Benign prostatic hyperplasia with lower urinary tract symptoms; R35.1 - Nocturia Plan: Continue tamsulosin. Referred to Urology. (4) Dyslipidemia: Code(s): E78.5 - Hyperlipidemia, unspecified Plan: Continue statins. Repeat lipid panel. LDL goal should be less than 70. (5) BRYAN (obstructive sleep apnea): Comment: PSG (2018): AHI 56/hr w/ O2 vanita 84%. Snoring, excessive daytime sleepiness. ESS 15. Code(s): G47.33 - Obstructive sleep apnea (adult) (pediatric) Plan: Start CPAP Orders: Orders Comprehensive [place]. Panel Fast Today E78.5 - Hyperlipidemia, unspecified Lipid Panel Today E78.5 - Hyperlipidemia, unspecified Complete Blood Count Auto Diff Today I63.81 - Other cerebral infarction due to occlusion or stenosis of small artery Referrals Urology Referral N40.0 - Benign prostatic hyperplasia without lower urinary tract symptoms Coding Level of Care Code Est Pt Level 4 (19769) Diagnoses CAD (coronary artery disease) I25.10 Cerebrovascular accident (CVA) of right thalamus I63.9 BPH (benign prostatic hyperplasia) N40.1; R35.1 Lower urinary tract symptom presence: symptoms present Lower urinary tract symptom detail: nocturia Dyslipidemia E78.5 BRYAN (obstructive sleep apnea) G47.33 Additional Codes DANISH-7 Assessment Billing - DANISH-7 Assessment Tool: DANISH-7 Assessment 64058 ([id number]) Time Spent (min) 23
== END 2022-12-31 14:21 | disposition home or self-care (01) ==
PROVIDERS: Visit Provider Internal Medicine
DX: I25.10 Atherosclerotic heart disease of native coronary artery without angina pectoris (principal); N40.1 Benign prostatic hyperplasia with lower urinary tract symptoms; G47.33 Obstructive sleep apnea (adult) (pediatric); E78.5 Hyperlipidemia, unspecified; R35.1 Nocturia
CPT/HCPCS: 99214

== ENCOUNTER 2023-05-28 10:14 | Outpatient (REF) | payer OTHER, SELFPAY ==
[2023-05-28 10:34] LABS: MANUAL DIFF FLAG NO
[2023-05-28 11:03] LABS: Basophils Absolute Auto 0.1 X10*3/uL (0.0-0.2); Basophils Percent Auto 0.6 % (0-2); Eosinophils Absolute Auto 0.2 X10*3/uL (0.0-0.4); Eosinophils Percent Auto 2.5 % (0-4); Hematocrit 42.3 % (42.0-52.0); Hemoglobin 14.3 g/dl (14.0-18.0); Imm Gran Abs Auto 0.03 X10*3/uL (0.00-0.03); Imm Gran Pct Auto 0.4 % (0.0-0.4); Lymphocytes Absolute Auto 2.2 X10*3/uL (1.2-4.9); Lymphocytes Percent Auto 27.7 % (20-40); Mean Corpuscular HGB Conc 33.8 g/dl (31.0-36.0); Mean Corpuscular Volume 94.6 fL (80.0-98.0); Mean Platelet Volume 11.8 fL (9.4-12.4); Monocytes Absolute Auto 0.6 X10*3/uL (0.1-1.2); Monocytes Percent Auto 7.6 % (2-11); Neutrophils Absolute Auto 4.9 x10*3/uL (2.0-8.3); Neutrophils Percent Auto 61.2 % (45-73); Platelet Count 167 X10*3/uL (160-400); Red Blood Count 4.47 X10*6/uL (4.60-5.80); White Blood Count 7.9 X10*3/uL (4.8-10.8)
[2023-05-28 11:31] LABS: Alanine Aminotransferase 20 U/L (0-40); Albumin Level 4.3 g/dL (3.5-5.0); Alkaline Phosphatase 92 U/L (39-117); Anion Gap 13 (12-20); Aspartate Amino Transferase 22 U/L (5-37); Bilirubin Total 0.8 mg/dL (0.0-1.0); Blood Urea Nitrogen 22 mg/dL (9-16); Calcium 9.7 mg/dL (8.4-10.2); Carbon Dioxide 28 mmol/L (22-29); Chloride 108 mmol/L (96-108); Cholesterol 208 mg/dL (<200); Estimated Glomerular Filt Rate > 60; Glucose Fasting 101 mg/dL (60-99); HDL Cholesterol 40 mg/dL (>40); LDL Cholesterol Calculated 136 mg/dL (<100); Potassium 4.5 mmol/L (3.3-5.1); Sodium 144 mmol/L (135-145); Total Protein 7.4 g/dL (6.5-8.0); Triglycerides 162 mg/dL (<150)
== END 2023-05-28 10:15 | disposition home or self-care (01) ==
LOC: HO.LAB 10:14
PROVIDERS: PCP Internal Medicine; Visit Provider Internal Medicine
DX: I63.81 Other cerebral infarction due to occlusion or stenosis of small artery (principal); E78.5 Hyperlipidemia, unspecified
CPT/HCPCS: 36415; 80053; 80061; 85025

== ENCOUNTER 2023-06-02 09:17 | Outpatient (AMB) | payer MEDICARE, SELFPAY ==
--- NOTE | 2023-06-02 09:21 | MHC.PC.OV ---
Vital Signs 06/02/23 09:23 06/02/23 10:09 Height 6 ft Weight 198 lb BMI 26.9 BP 146/82 H 150/80 H Blood Pressure Location Lt brachial Lt brachial Position Sitting Sitting Intake Visit Reasons: Annual Exam Intake Note: Patient here for an annual physical exam Network Operations Center Technician Required: No Accompanied by: Self / Same As Patient Allergies Iodinated Contrast Media [IV CONTRAST] Allergy (Mild, Verified 06/02/23 09:37) PATIENT STATES HISTORY OF IV REACTION FROM [facility] terazosin Adverse Reaction (Intermediate, Verified 06/02/23 09:37) blurry vision Penicillins Adverse Reaction (Mild, Verified 06/02/23 09:37) WEAKNESS Medication List - Last Reconciled 06/02/23 by Nathalie Damon MD No Known Home Meds Tobacco use date assessed: 06/02/23 Fall risk assessment: 1 Fall in past year Last assessed Fall Risk: 06/02/23 Dental Screening Dental Screen Date: 06/02/23 Did you have a dental visit in the last 12 months?: No Did you have a dental problem in the last 6 months where you did not have access to dental care?: No Was dental information given to patient?: Yes HPI HPI Comments History of Present Illness Details This is an 82-year-old male with history of stroke that comes for his physical exam. Blood pressure elevated today and will be recheck in 3 weeks by nurse navigator. Cholesterol was elevated and I will add a statin. No chest pain or shortness of breath. No residual deficit from stroke. Had colonoscopy less than 7 years ago and was normal. FOR[facility]LY [facility] Medical History Dyslipidemia Left sided lacunar infarction Left ventricular outflow tract obstruction BPH (benign prostatic hyperplasia) Podagra HLD (hyperlipidemia) Atypical chest pain Heart problem Surgical History No history of previous surgery Family History (Updated 06/02/23 @ 09:41 by Nathalie Damon MD) Mother No problems noted. Father No problems noted. Social History Housing: Apartment Alcohol intake: never Patient Tobacco Use Status: Never used Tobacco e-Cigarette/Vaping Use: Never Used Second Hand Smoke Exposure: No service: No Current occupational status: disabled Cognitive needs: No Hearing needs: No Vision needs: No Questionnaire PHQ-9 Over the last 2 weeks, how often have you been bothered by any of the following problems? 1. Little interest or pleasure in doing things: not at all 2. Feeling down, depressed, or hopeless: not at all 3. Trouble falling or staying asleep, or sleeping too much: not at all 4. Feeling tired or having little energy: not at all 5. Poor appetite or overeating: not at all 6. Feeling bad about yourself - or that you are a failure or have let yourself or your family down: not at all 7. Trouble concentrating on things, such as reading the newspaper or watching television: not at all 8. Moving or speaking so slowly that other people could have noticed. Or the opposite - being so fidgety or restless that you have been moving around a lot more than usual: not at all 9. Thoughts that you would be better off or of hurting yourself in some way: not at all Total score: 0 Depression Screening Interpretation: Negative Depression Screening Done: Yes 05945 - PHQ-9 Billing: Yes Source: Developed by Drs. Santos Celestin, Jennie Mendez, Guillermo Leonard and colleagues, with an educational nicolas from [employer]. Thrive Questionnaire Date Thrive assessed: 06/02/23 I am a: Patient What is your living situation today?: I have a steady place to live Within the past 12 months, did the food you bought not last and you didn't have the money to get more?: Never true Within the past 12 months, did you worry whether your food would run out before you got money to buy more?: Never true Do you have trouble paying for medicines?: No Do you have trouble getting transportation to medical appointments?: No Do you have trouble paying your heating and electricity bill?: No Do you have trouble taking care of your child, family member or friend?: No Do you have trouble with day-to-day activities such as bathing, preparing meals, shopping, managing finances, etc.?: No Are you currently unemployed and looking for a job?: No Are you interested in more education?: No Please select the resources that you would like help with: None Currently or been in a relationship where the following occur: no concerns reported THRIVE Score: 0 AUDIT C Alcohol Use Questionnaire (AUDIT-C) 1. How often do you have a drink containing alcohol?: Monthly or less 2. How many drinks containing alcohol do you have on a typical day when you are drinking?: 1 or 2 3. How often do you have six or more drinks on one occasion?: Never Total Score: 1 Score Reviewed/Action Taken: No DANISH-7 AMB Questionnaire DANISH-7 Date DANISH - 7 assessed: 06/02/23 Feeling nervous, anxious, or on edge: 0 = Not at all Not being able to stop or control worryin = Not at all Worrying too much about different things: 0 = Not at all Trouble relaxin = Not at all Being so restless that it is hard to sit still: 0 = Not at all Becoming easily annoyed or irritable: 0 = Not at all Feeling afraid as if something awful might happen: 0 = Not at all Total DANISH-7 score (0-4 normal; 5-9 mild; 10-14 moderate; 15-21 severe): 0 Source: Developed by Drs. Santos Celestin, Jennie Mendez, Guillermo Leonard and colleagues, with an educational nicolas from [employer]. DANISH-7 Assessment Billing DANISH-7 Assessment Tool: DANISH-7 Assessment 56612 Review of Systems Const All systems reviewed & are unremarkable except as noted in HPI and below Eyes Reports no additional complaints, Denies change in vision and Denies other visual disturbances Card Denies chest pain at rest, Denies chest pain with activity, Denies edema, Denies irregular heart rhythm, Denies claudication, Denies dyspnea, Denies dyspnea on exertion, Denies orthopnea, Denies paroxysmal nocturnal dyspnea and Denies slow heart rate Resp Denies cough, Denies dyspnea and Denies dyspnea on exertion GI Denies abdominal pain, Denies change in bowel habits, Denies excessive flatus, Denies nausea and Denies vomiting Denies urinary hesitancy, Denies urinary incontinence and Denies urinary urgency Musc Denies abnormal gait, Denies atrophy, Denies deformity and Denies limited range of motion Neuro Denies abnormal gait, Denies behavioral changes, Denies confusion and Denies lack of coordination Psych Denies behavioral changes and Denies confusion Physical exam (Primary Care) Vital Signs: Last Vital Signs BP 146/82 H 06/02/23 09:23 BMI result Body Mass Index 26.9 Tobacco/Smoking Status: Tobacco use Status Tobacco use date assessed 06/02/23 06/02/23 09:31 Patient Tobacco Use Status Never used Tobacco 06/02/23 09:22 e-Cigarette/Vaping Use Never Used 06/02/23 09:22 PHQ-9: PHQ-9 Score PHQ-9: Total score 0 06/02/23 09:49 Depression Screening Interpretation: Negative Thrive Assessment: Date of Thrive Assessment Date Thrive assessed 06/02/23 06/02/23 09:31 Currently or been in a relationship where the following occur: no concerns reported Const General: No confusion Orientation/consciousness: patient oriented x3 and No confusion HENMT Head: Yes normal to inspection, Yes normocephalic and Yes atraumatic Ears: external ears normal Eyes General: appearance normal, both eyes and all related structures Eyelids: Yes eyelids normal Conjunctivae: conjunctivae normal Neck Neck: Yes normal visual inspection and Yes supple Resp Effort & Inspection: normal respiratory effort Auscultation: clear to auscultation bilaterally Cardio Jugular venous distension: no JVD Rate: regular rate Rhythm: regular rhythm Heart sounds: S1 normal heart sound present, S2 normal heart sound present and Murmur heart sound present GI Inspection: Yes normal to inspection Palpation (GI): Soft to palpation and nontender Auscultation: normal bowel sounds Skin General skin exam: no rashes or lesions noted Neuro General: patient oriented x3, no focal motor deficits and No confusion Extrem General: Yes full ROM Psych Appearance: grossly normal Office Procedures Flu Questionnaire Does the patient have a severe egg allergy?: No Immunizations flu vacc [id number] 6mos up(PF) 60 mcg(15 mcgx4)/0.5 mL IM syringe Performing Provider: Nathalie Damon MD [facility] Documented (not given) by: STEFFANIE Lora on 06/02/23 09:49 Reason Not Given: Not Given Assessment and Plan Assessment & Plan (1) Physical exam: Code(s): Z00.00 - Encounter for general adult medical examination without abnormal findings Plan: Repeat in a year. Orders: Orders Comprehensive [place]. Panel Fast 6 Months I63.9 - Cerebral infarction, unspecified Lipid Panel 6 Months E78.5 - Hyperlipidemia, unspecified [place] echo transthoracic complete 3 Months R01.1 - Cardiac murmur, unspecified Influenza [id number] Immunization Today Z23 - Encounter for immunization Medications: New atorvastatin 20 mg PO BEDTIME 90 tabs 1RF 90 days I63.9 - Cerebral infarction, unspecified aspirin 81 mg PO DAILY 90 tabs 1RF 90 days I63.9 - Cerebral infarction, unspecified Coding Level of Care Code Est Pt Prev Care >65y(09026) Diagnoses Physical exam Z00.00 Additional Codes DANISH-7 Assessment Billing - DANISH-7 Assessment Tool: DANISH-7 Assessment 53604 ([id number]) Time Spent (min) 31
[2023-06-02 09:23] VITALS: BP 146/82; BMI 26.9
[2023-06-02 10:09] VITALS: BP 150/80
== END 2023-06-02 09:47 | disposition home or self-care (01) ==
PROVIDERS: PCP Internal Medicine; Visit Provider Internal Medicine
DX: Z00.00 Encounter for general adult medical examination without abnormal findings (principal)
CPT/HCPCS: 99397

== ENCOUNTER 2023-09-25 11:28 | Outpatient (AMB) | payer OTHER, SELFPAY ==
--- NOTE | 2023-09-25 13:31 | MHC.PC.OV ---
Intake Visit Reasons: Gout Intake Note: Gout left foot Allergies Iodinated Contrast Media [IV CONTRAST] Allergy (Mild, Verified 06/02/23 09:37) PATIENT STATES HISTORY OF IV REACTION FROM [facility] terazosin Adverse Reaction (Intermediate, Verified 06/02/23 09:37) blurry vision Penicillins Adverse Reaction (Mild, Verified 06/02/23 09:37) WEAKNESS Tobacco use date assessed: 06/02/23 Dental Screening Dental Screen Date: 06/02/23 [facility] Medical History Dyslipidemia Left sided lacunar infarction Left ventricular outflow tract obstruction BPH (benign prostatic hyperplasia) Podagra HLD (hyperlipidemia) Atypical chest pain Heart problem Surgical History No history of previous surgery Family History (Updated 06/02/23 @ 09:41 by Nathalie Damon MD) Mother No problems noted. Father No problems noted. Social History Housing: Apartment Alcohol intake: never Patient Tobacco Use Status: Never used Tobacco e-Cigarette/Vaping Use: Never Used Second Hand Smoke Exposure: No service: No Current occupational status: disabled Cognitive needs: No Hearing needs: No Vision needs: No Questionnaire Thrive Questionnaire Date Thrive assessed: 06/02/23 DANISH-7 AMB Questionnaire DANISH-7 Date DANISH - 7 assessed: 06/02/23 Source: Developed by Drs. Santos Celestin, Jennie Mendez, Guillermo Leonard and colleagues, with an educational nicolas from [employer]. Physical exam (Primary Care) Tobacco/Smoking Status: Tobacco use Status Tobacco use date assessed 06/02/23 06/02/23 09:31 Patient Tobacco Use Status Never used Tobacco 06/02/23 09:22 e-Cigarette/Vaping Use Never Used 06/02/23 09:22 Thrive Assessment: Date of Thrive Assessment Date Thrive assessed 06/02/23 06/18/23 10:29 Coding
--- NOTE | 2023-09-25 13:40 | AM.OFFWIN_ITS ---
Intake Vital Signs 09/25/23 13:42 Height 6 ft Weight 210 lb BMI 28.5 BP 130/70 Blood Pressure Location Rt brachial Position Sitting Respiration 16 Pulse 60 Pulse Source Palpation Temp 97.5 F Temp Source Oral Pulse Oximetry (%) 95 Oxygen Delivery Method Room Air Intake Visit Reasons: Gout Intake Note: Gout Patient Tobacco Use Status: Never used Tobacco Efficiency Analyst Required: Yes Allergies Iodinated Contrast Media [IV CONTRAST] Allergy (Mild, Verified 09/25/23 13:41) PATIENT STATES HISTORY OF IV REACTION FROM [facility] terazosin Adverse Reaction (Intermediate, Verified 09/25/23 13:41) blurry vision Penicillins Adverse Reaction (Mild, Verified 09/25/23 13:41) WEAKNESS Do you need a note to return to daycare/school/sports/work: No HPI HPI Comments History of Present Illness Details 82 year old male with pmhx gout presenti for pain/gout of toe Reports pain of the left great toe for the past 5 days, increasing, redness consistent with prior episodes of gout. Generally as taken prednisone. FORMERLY [facility] Medical History Dyslipidemia Left sided lacunar infarction Left ventricular outflow tract obstruction BPH (benign prostatic hyperplasia) Podagra HLD (hyperlipidemia) Atypical chest pain Heart problem Surgical History No history of previous surgery Family History (Updated 06/02/23 @ 09:41 by Nathalie Damon MD) Mother No problems noted. Father No problems noted. Social History Housing: Apartment Alcohol intake: never Patient Tobacco Use Status: Never used Tobacco e-Cigarette/Vaping Use: Never Used Second Hand Smoke Exposure: No service: No Current occupational status: disabled Cognitive needs: No Hearing needs: No Vision needs: No Review of Systems Const Details: see HPI Physical Exam Vital Signs: Last Vital Signs Temp 97.5 F 09/25/23 13:42 Pulse 60 09/25/23 13:42 Resp 16 09/25/23 13:42 BP 130/70 09/25/23 13:42 Pulse Ox 95 09/25/23 13:42 Oxygen Delivery Method Room Air 09/25/23 13:42 BMI result Body Mass Index 28.5 Const Other: Redness, swelling and tenderness to palpation of left great toe Assessment & Plan Assessment & Plan (1) Gouty arthritis of left great toe: Code(s): M10.9 - Gout, unspecified Plan: Prednisone ordered -continue until improved then taper When total resolution may start allopurinol. Follow up pcp Medications: New allopurinol Once symptoms of gout have completely resolved start allopurinol 1 tab oral once daily 100 mg PO DAILY 90 tabs 3RF prednisone Take 2 tab oral once daily until pain and symptoms of gout resolve then take 1 tab oral daily for 2 days then stop. 30 tabs 0RF Coding Level of Care Code Est Pt Level 4 (14252) Diagnoses Gouty arthritis of left great toe M10.9
[2023-09-25 13:42] VITALS: BP 130/70; PULSE 60; RESP 16; TEMP 36.4; O2SAT 95; BMI 28.5
== END 2023-09-25 14:18 | disposition home or self-care (01) ==
PROVIDERS: PCP Internal Medicine; Visit Provider Internal Medicine
DX: M10.9 Gout, unspecified (principal)
CPT/HCPCS: 99214

== ENCOUNTER 2023-11-09 08:09 | Outpatient (AMB) | payer MEDICARE, SELFPAY ==
[2023-11-09 08:17] VITALS: BP 130/70; PULSE 88; O2SAT 97; BMI 27.8
--- NOTE | 2023-11-09 08:17 | MHC.PC.OV ---
Vital Signs 11/09/23 08:17 Height 6 ft Weight 205 lb BMI 27.8 BP 130/70 Blood Pressure Location Lt brachial Position Sitting Pulse 88 Pulse Source Pulse Oximeter Pulse Oximetry (%) 97 Oxygen Delivery Method Room Air Intake Visit Reasons: gout on RT elbow Energy Operations Vice President Required: No Accompanied by: Self / Same As Patient Allergies Iodinated Contrast Media [IV CONTRAST] Allergy (Mild, Verified 11/09/23 08:35) PATIENT STATES HISTORY OF IV REACTION FROM [facility] terazosin Adverse Reaction (Intermediate, Verified 11/09/23 08:35) blurry vision Penicillins Adverse Reaction (Mild, Verified 11/09/23 08:35) WEAKNESS Medication List - Last Reconciled 11/09/23 by Nathalie Damon MD allopurinol 100 mg PO DAILY aspirin 81 mg PO DAILY 90 days atorvastatin 20 mg PO BEDTIME 90 days Tobacco use date assessed: 06/02/23 Fall risk assessment: 1 Fall in past year (fell 3 weeks ago while going for a walk. ) Last assessed Fall Risk: 11/09/23 Dental Screening Dental Screen Date: 06/02/23 HPI HPI Comments History of Present Illness Details This is an 83-year-old male with history of cerebrovascular accident of right thalamus and left lacunar infarction, dyslipidemia and gout that comes today complaining of right elbow pain and swelling that started about a week ago. He denies previous trauma. X-ray will be ordered. On aspirin for secondary prophylaxis for cerebrovascular accident. Has dyslipidemia and is on statins. No side effects. No chest pain or shortness on breath. [facility] Medical History (Updated 11/09/23 @ 10:36 by Nathalie Damon MD) Pre-operative clearance Dyslipidemia Left sided lacunar infarction Left ventricular outflow tract obstruction BPH (benign prostatic hyperplasia) Podagra HLD (hyperlipidemia) Atypical chest pain Heart problem Surgical History No history of previous surgery Family History Mother No problems noted. Father No problems noted. Social History Housing: Apartment Alcohol intake: never Patient Tobacco Use Status: Never used Tobacco e-Cigarette/Vaping Use: Never Used Second Hand Smoke Exposure: No service: No Current occupational status: disabled Cognitive needs: No Hearing needs: No Vision needs: No Questionnaire PHQ-9 Over the last 2 weeks, how often have you been bothered by any of the following problems? 1. Little interest or pleasure in doing things: not at all 2. Feeling down, depressed, or hopeless: not at all 3. Trouble falling or staying asleep, or sleeping too much: not at all 4. Feeling tired or having little energy: not at all 5. Poor appetite or overeating: not at all 6. Feeling bad about yourself - or that you are a failure or have let yourself or your family down: not at all 7. Trouble concentrating on things, such as reading the newspaper or watching television: not at all 8. Moving or speaking so slowly that other people could have noticed. Or the opposite - being so fidgety or restless that you have been moving around a lot more than usual: not at all 9. Thoughts that you would be better off or of hurting yourself in some way: not at all Total score: 0 Depression Screening Interpretation: Negative Depression Screening Done: Yes 00183 - PHQ-9 Billing: Yes Source: Developed by Drs. Santos Celestin, Jennie Mendez, Guillermo Leonard and colleagues, with an educational nicolas from [employer]. Thrive Questionnaire Date Thrive assessed: 06/02/23 AUDIT C Alcohol Use Questionnaire (AUDIT-C) 1. How often do you have a drink containing alcohol?: Monthly or less 2. How many drinks containing alcohol do you have on a typical day when you are drinking?: 1 or 2 3. How often do you have six or more drinks on one occasion?: Never Total Score: 1 Score Reviewed/Action Taken: No DANISH-7 AMB Questionnaire DANISH-7 Date DANISH - 7 assessed: 06/02/23 Source: Developed by Drs. Santos Celestin, Guillermo Phillips and colleagues, with an educational nicolas from [employer]. Review of Systems Const All systems reviewed & are unremarkable except as noted in HPI and below Card Denies chest pain at rest, Denies chest pain with activity, Denies edema, Denies irregular heart rhythm, Denies claudication, Denies dyspnea, Denies dyspnea on exertion, Denies orthopnea, Denies paroxysmal nocturnal dyspnea and Denies slow heart rate Resp Denies cough, Denies dyspnea and Denies dyspnea on exertion GI Denies abdominal pain, Denies change in bowel habits, Denies excessive flatus, Denies nausea and Denies vomiting Musc Reports back pain and Reports joint swelling Physical exam (Primary Care) Vital Signs: Last Vital Signs Pulse 88 11/09/23 08:17 BP 130/70 11/09/23 08:17 Pulse Ox 97 11/09/23 08:17 Oxygen Delivery Method Room Air 11/09/23 08:17 BMI result Body Mass Index 27.8 Tobacco/Smoking Status: Tobacco use Status Tobacco use date assessed 06/02/23 11/09/23 08:24 Patient Tobacco Use Status Never used Tobacco 11/09/23 08:24 e-Cigarette/Vaping Use Never Used 11/09/23 08:24 PHQ-9: PHQ-9 Score PHQ-9: Total score 0 11/09/23 10:18 Depression Screening Interpretation: Negative Thrive Assessment: Date of Thrive Assessment Date Thrive assessed 06/02/23 11/09/23 08:24 Resp Effort & Inspection: normal respiratory effort Auscultation: clear to auscultation bilaterally Cardio Jugular venous distension: no JVD Rate: regular rate Rhythm: regular rhythm Heart sounds: S1 normal heart sound present and S2 normal heart sound present Extrem General: Yes full ROM Right upper extremity: elbow/forearm Details: swelling Assessment and Plan Assessment & Plan (1) Left sided lacunar infarction: Code(s): I63.81 - Other cerebral infarction due to occlusion or stenosis of small artery Plan: Continue aspirin. (2) Cerebrovascular accident (CVA) of right thalamus: Code(s): I63.9 - Cerebral infarction, unspecified Plan: Continue aspirin. (3) Dyslipidemia: Code(s): E78.5 - Hyperlipidemia, unspecified Plan: Continue statins. (4) Gout: Code(s): M10.9 - Gout, unspecified Qualifiers: Gout site: elbow Gout etiology: idiopathic Chronicity: acute Laterality: right Qualified Code(s): M10.021 - Idiopathic gout, right elbow Plan: Continue allopurinol. Uric acid levels ordered. Start indomethacin. Orders: Orders XR elbow RT 2V Today M10.9 - Gout, unspecified Vitamin D 25-OH Total 3 Weeks E55.9 - Vitamin D deficiency, unspecified PSA,Total (Free>4and<10) 3 Weeks Z12.5 - Encounter for screening for malignant neoplasm of prostate CA echo transthoracic complete Today R01.1 - Cardiac murmur, unspecified Uric Acid Today M10.9 - Gout, unspecified Lipid Panel 3 Weeks E78.5 - Hyperlipidemia, unspecified Comprehensive [place]. Panel Fast 3 Weeks E78.5 - Hyperlipidemia, unspecified Medications: New indomethacin administer with food or milk 50 mg PO TID 21 caps 0RF 7 days Coding Level of Care Code Est Pt Level 4 (05383) Complex EM visit Add On G2211 Diagnoses Left sided lacunar infarction I63.81 Cerebrovascular accident (CVA) of right thalamus I63.9 Dyslipidemia E78.5 Acute idiopathic gout of right elbow M10.021 Gout site: elbow Gout etiology: idiopathic Chronicity: acute Laterality: right Time Spent (min) 20
== END 2023-11-09 08:49 | disposition home or self-care (01) ==
PROVIDERS: PCP Internal Medicine; Visit Provider Internal Medicine
DX: I63.81 Other cerebral infarction due to occlusion or stenosis of small artery (principal); E78.5 Hyperlipidemia, unspecified; M10.021 Idiopathic gout, right elbow
CPT/HCPCS: 99214; G2211

== ENCOUNTER 2023-11-09 08:58 | Outpatient (REF) | payer MEDICARE, SELFPAY ==
--- NOTE | ~2023-11-09 | XR_ITS ---
EXAMINATION: XR ELBOW, RIGHT CLINICAL INFORMATION: Gout unspecified, patient states pain after fall. COMPARISON: August 31, 2011. TECHNIQUE: AP, lateral, and oblique views of the right elbow. FINDINGS: Large olecranon spur with swelling of the overlying soft tissues. Corticated ossicle adjacent to the tip of the olecranon spur redemonstrated. Alignment maintained. Spurring along the medial epicondyle of the distal humerus. Faint soft tissue calcification medial to the distal humerus. XR/XR elbow RT 2V IMPRESSION: 1. Large olecranon spur with swelling of the overlying soft tissues. Corticated ossicle adjacent to the tip of the olecranon spur redemonstrated. 2. Spurring along the medial epicondyle of the distal humerus. Faint soft tissue calcification medial to the distal humerus.
== END 2023-11-09 08:59 | disposition home or self-care (01) ==
LOC: HO.XRAY 08:58
PROVIDERS: PCP Internal Medicine; Visit Provider Internal Medicine
DX: M10.9 Gout, unspecified (principal)
CPT/HCPCS: 73070

== ENCOUNTER → 2023-11-27 13:23 | Outpatient (REF) | payer MEDICARE, SELFPAY ==
--- NOTE | 2023-11-27 13:27 | CA_ITS ---
Transthoracic Echocardiogram Patient (Last, First, Middle): Dayton Dorantes, Gender: Male Date of : 1940 Age: 83 Procedure Date: 11/27/2023 Procedure Type: Transthoracic Echocardiogram Location: OP Height: 182.88 cm Weight: 90.72 kg BSA: 2.13 m2 Heart Rate: 71 bpm BP: 115 / 75 mmHg Scalehouse Attendant: ADELA Referring MD: Nathalie Damon MD Carton Making Machinist: Junior Brown MD Symptoms: R01.1 - Cardiac murmur, unspecified Study Quality: Fair ECG Rhythm: Sinus Conclusions: - 1. Hyperdynamic LV EF of greater than 70% with impaired relaxation filling pattern with possible mild LVOT obstruction 2. Mild aortic regurgitation and [id number] aortic stenosis noted 3. Mildly dilated ascending aorta at 4.3 cm 4. Normal RV systolic pressure 5. No gross pericardial effusion Findings Left Ventricle Normal left ventricular cavity size. There is mildly increased left ventricular wall thickness. The left ventricular systolic function is hyperdynamic. The visually estimated ejection fraction is >70%. There is systolic anterior motion of the mitral valve. Spectral Doppler is indicative of an impaired relaxation filling pattern. E/E prime ratio is between 8 and 15 consistent with indeterminate filling pressures. LVOT obstruction can not be entirely ruled out on this study Right Ventricle Normal right ventricular cavity size and systolic function. Atria The left atrium is normal in size. There is no evidence of interatrial shunt. The right atrium is normal in size. Aortic Valve The aortic valve was not well visualized. There is mild calcification of the aortic valve. There is mild to moderate aortic valve stenosis. The peak aortic gradient is 29 mmHg.The mean gradient is 19 mmHg. The aortic valve area is 1.46 cm2. There is mild aortic valve regurgitation. Mitral Valve There is mild anterior mitral leaflet thickening. There is trace mitral valve regurgitation. There is no mitral valve stenosis. Tricuspid Valve Normal tricuspid valve structure. There is mild tricuspid valve regurgitation. The right ventricular systolic pressure is normal. The right ventricular systolic pressure is 29 mmHg. Normal right atrial pressure. There is no evidence of pulmonary hypertension. Great Vessels The pulmonary artery was not well visualized. There is mild dilatation of the ascending aorta measuring 4.30 cm. Venous The inferior vena cava is normal in size and collapses greater than 50% with inspiration. Pericardium/Pleural There is no evidence of pericardial effusion. Prior Study Comparison Changes noted compared to prior study dated: 11/29/2020. [id number] aortic stenosis noted Recommendations, Care & Conclusions Consider a NIMESH if clinically appropriate. Measurements 2D Linear Measurements IVSd: 1.70 0.6-0.9/0.6-1.0 cm LVIDd: 3.05 3.9-5.3/4.2-5.9 cm LVIDd Index: 1.43 2.4-3.2/2.2-3.1 cm/m2 LVIDs: 1.81 2.0-3.6 cm LVPWd: 1.33 0.7-1.1 cm LA Diam: 4.20 2.7-3.8/3.0-4.0 cm LAIDs Index: 1.97 1.5-2.3 cm/m2 LV Mass: 204.24 67-162/88-224 g LV Mass Index: 95.89 43-95/49-115 g/m2 LVOT Diam: 1.70 3.0+(-)1.3 cm 2D Systolic Function EF 4C: 72.30 >55% EF 2C: 84.20 >55% Mitral Valve MV Pk E: 0.53 MV PK A: 0.99 MV Decel Time: 439.00 E/A: 0.50 E'Lateral: 6.09 E'Medial: 4.79 E/E' Med: 11.00 E/E' Lat: 8.70 PHT: 129.00 MVA PHT: 1.71 Decel Ballard: 1.20 Aortic Valve AoV Pk Ba: 2.71 AoV Mn Ba: 2.02 AoV VTI: 0.52 AoV Pk Grad: 29.00 Aov Mn Grad: 19.00 GE Cont.VTI: 1.46 AI Pk Ba: 4.13 AI Ballard: 1.54 LVOT LVOT Pk Ba: 1.87 LVOT Mn Ba: 1.21 LVOT VTI: 0.33 LVOT Pk Grad: 14.00 LVOT Mn Grad: 7.00 LVOT Diam: 1.70 LVOT Area: 2.27 Diastolic Function MV Pk E: 0.53 MV Pk A: 0.99 E/A: 0.50 E'Medial: 4.79 E/E' Med: 11.00 E' Laterial: 6.09 E/E' Lat: 8.70 Right Ventricle TAPSE (mm): 22.90 TVS' Ba: 13.20 Tricuspid Valve TR Pk Ba: 2.54 TR Pk Grad: 26.00 RA Press: 3.00 RVSP: 29.00 Great Vessels Aorta Sinus of Valsalva: 4.30 2.0-3.5 cm Ao Asc: 4.30 2.1-3.4 cm Ao Arch: 3.30 Pulmonary Valve PV Pk Ba: 1.14 Peak PV Grad: 5.00 Updated in Other Vendor System with Status of Final Junior Brown MD electronically signed on 11/27/2023 3:57:48 PM with status of Final
== END ==
LOC: HO.CARD 13:23
PROVIDERS: PCP Internal Medicine; Visit Provider Internal Medicine
DX: R01.1 Cardiac murmur, unspecified (principal)
CPT/HCPCS: 93306

== ENCOUNTER → 2023-11-27 13:27 | Outpatient (BNV) | payer MEDICARE, SELFPAY | PROVIDERS: PCP Internal Medicine; Visit Provider Internal Medicine Cardiovascular Disease | DX: I35.2 Nonrheumatic aortic (valve) stenosis with insufficiency (principal); I35.8 Other nonrheumatic aortic valve disorders; I36.1 Nonrheumatic tricuspid (valve) insufficiency | CPT/HCPCS: 93306 ==

== ENCOUNTER 2023-12-01 10:34 | Outpatient (AMB) | payer MEDICARE, SELFPAY ==
[2023-12-01 10:44] VITALS: BP 112/76; BMI 28.2
--- NOTE | 2023-12-01 10:44 | A.OFFPC_ITS ---
Vital Signs 12/01/23 10:44 Height 6 ft Weight 208 lb BMI 28.2 BP 112/76 Blood Pressure Location Lt brachial Position Sitting Intake Visit Reasons: lipids,bp Intake Note: Patient here for a follow up lipids, bp, c/o Gout flare seen at [place] Analyst Required: No Accompanied by: Self / Same As Patient Allergies Iodinated Contrast Media [IV CONTRAST] Allergy (Mild, Verified 12/01/23 10:58) PATIENT STATES HISTORY OF IV REACTION FROM [facility] terazosin Adverse Reaction (Intermediate, Verified 12/01/23 10:58) blurry vision Penicillins Adverse Reaction (Mild, Verified 12/01/23 10:58) WEAKNESS Medication List - Last Reconciled 12/01/23 by Nathalie Damon MD allopurinol 100 mg PO DAILY aspirin 81 mg PO DAILY 90 days atorvastatin 20 mg PO BEDTIME 90 days indomethacin 50 mg PO TID 7 days Tobacco use date assessed: 06/02/23 Fall risk assessment: 1 Fall in past year Last assessed Fall Risk: 12/01/23 Dental Screening Dental Screen Date: 06/02/23 HPI HPI Comments History of Present Illness Details This is an 83-year-old male with dyslipidemia and gout that complains of right elbow pain and right knee pain that has been present for few weeks. Has used multiple medications for gout with no significant improvement and I will order prednisone. Went to urgent care almost a week ago and had x-rays which showed no fracture. Uric acid levels will be order to be done today. He is not taking allopurinol or statins. Was advised to restart both medications. Has history of left lacunar infarction and needs an LDL less than 70. Denies any chest pain or shortness on breath. Able to walk with no assistive device. [facility], [facility]1983 Medical History Pre-operative clearance Dyslipidemia Left sided lacunar infarction Left ventricular outflow tract obstruction BPH (benign prostatic hyperplasia) Podagra HLD (hyperlipidemia) Atypical chest pain Heart problem Surgical History No history of previous surgery Family History Mother No problems noted. Father No problems noted. Social History Housing: Apartment Alcohol intake: never Patient Tobacco Use Status: Never used Tobacco e-Cigarette/Vaping Use: Never Used Second Hand Smoke Exposure: No service: No Current occupational status: disabled Cognitive needs: No Hearing needs: No Vision needs: No Questionnaire Thrive Questionnaire Date Thrive assessed: 06/02/23 DANISH-7 AMB Questionnaire DANISH-7 Date DANISH - 7 assessed: 06/02/23 Source: Developed by Drs. Santos Celestin, Jennie Mendez, Guillermo Leonard and colleagues, with an educational nicolas from [employer]. Review of Systems Const All systems reviewed & are unremarkable except as noted in HPI and below Card Denies chest pain at rest, Denies chest pain with activity, Denies edema, Denies irregular heart rhythm, Denies claudication, Denies dyspnea, Denies dyspnea on exertion, Denies orthopnea, Denies paroxysmal nocturnal dyspnea and Denies slow heart rate Resp Denies cough, Denies dyspnea and Denies dyspnea on exertion GI Denies abdominal pain, Denies change in bowel habits, Denies excessive flatus, Denies nausea and Denies vomiting Musc Reports arthralgias and Reports joint swelling Physical exam (Primary Care) Vital Signs: Last Vital Signs BP 112/76 12/01/23 10:44 BMI result Body Mass Index 28.2 Tobacco/Smoking Status: Tobacco use Status Tobacco use date assessed 06/02/23 12/01/23 10:49 Patient Tobacco Use Status Never used Tobacco 12/01/23 10:49 e-Cigarette/Vaping Use Never Used 12/01/23 10:49 Thrive Assessment: Date of Thrive Assessment Date Thrive assessed 06/02/23 12/01/23 10:49 Resp Effort & Inspection: normal respiratory effort Auscultation: clear to auscultation bilaterally Cardio Jugular venous distension: no JVD Rate: regular rate Rhythm: regular rhythm Heart sounds: S1 normal heart sound present and S2 normal heart sound present Extrem General: Yes full ROM Right upper extremity: elbow/forearm Details: tenderness and swelling Right lower extremity: knee Details: tenderness and swelling Assessment and Plan Assessment & Plan (1) Gout: Code(s): M10.9 - Gout, unspecified Qualifiers: Gout site: elbow Gout etiology: idiopathic Chronicity: acute Laterality: right Qualified Code(s): M10.021 - Idiopathic gout, right elbow Plan: Uric acid levels ordered to be done today. Start prednisone. (2) Dyslipidemia: Code(s): E78.5 - Hyperlipidemia, unspecified Plan: Restart statins. LDL goal is less than 70. Orders: Orders Uric Acid Today M10.9 - Gout, unspecified Medications: New prednisone Take 4 tabs for 2 days, then 3 tabs for 2 days, then 2 tabs for 2 days, then 1 tab for 2 days 10 mg PO DIRECTED 20 tabs 0RF 8 days Refilled atorvastatin 20 mg PO BEDTIME 90 tabs 1RF 90 days I63.9 - Cerebral infarction, unspecified aspirin 81 mg PO DAILY 90 tabs 1RF 90 days I63.9 - Cerebral infarction, unspecified allopurinol Once symptoms of gout have completely resolved start allopurinol 1 tab oral once daily 100 mg PO DAILY 90 tabs 3RF Discontinued indomethacin administer with food or milk Discontinued Reason: Patient Completed Course 50 mg PO TID 7 days 21 caps 0RF Coding Level of Care Code Est Pt Level 3 (71449) Complex EM visit Add On G2211 Diagnoses Acute idiopathic gout of right elbow M10.021 Gout site: elbow Gout etiology: idiopathic Chronicity: acute Laterality: right Dyslipidemia E78.5 Time Spent (min) 19
== END 2023-12-01 11:05 | disposition home or self-care (01) ==
PROVIDERS: PCP Internal Medicine; Visit Provider Internal Medicine
DX: M10.021 Idiopathic gout, right elbow (principal); E78.5 Hyperlipidemia, unspecified
CPT/HCPCS: 99213; G2211

== ENCOUNTER 2023-12-04 06:05 | Outpatient (REF) | payer MEDICARE, SELFPAY ==
[2023-12-04 08:14] LABS: PSA,Total (Free>4and<10) 0.71 ng/mL (0.00-4.00)
[2023-12-04 08:15] LABS: Alanine Aminotransferase 23 U/L (0-40); Albumin Level 4.1 g/dL (3.5-5.0); Alkaline Phosphatase 84 U/L (39-117); Anion Gap 15 (12-20); Aspartate Amino Transferase 20 U/L (5-37); Bilirubin Total 0.8 mg/dL (0.0-1.0); Blood Urea Nitrogen 27 mg/dL (9-16); Calcium 9.7 mg/dL (8.4-10.2); Carbon Dioxide 25 mmol/L (22-29); Chloride 108 mmol/L (96-108); Cholesterol 207 mg/dL (<200); Estimated Glomerular Filt Rate > 60; Glucose Fasting 91 mg/dL (60-99); HDL Cholesterol 40 mg/dL (>40); LDL Cholesterol Calculated 126 mg/dL (<100); Potassium 3.6 mmol/L (3.3-5.1); Sodium 144 mmol/L (135-145); Total Protein 6.9 g/dL (6.5-8.0); Triglycerides 208 mg/dL (<150); Uric Acid 9.4 mg/dL (3.4-7.0)
[2023-12-04 08:19] LABS: Vitamin D 25-OH Total 24.5 ng/mL (>30)
== END 2023-12-04 06:06 | disposition home or self-care (01) ==
LOC: HO.LAB 06:05
PROVIDERS: PCP Internal Medicine; Visit Provider Internal Medicine
DX: I63.9 Cerebral infarction, unspecified (principal); Z12.5 Encounter for screening for malignant neoplasm of prostate; M10.9 Gout, unspecified; E78.5 Hyperlipidemia, unspecified; E55.9 Vitamin D deficiency, unspecified
CPT/HCPCS: 36415; 80053; 80061; 82306; 84153; 84550

== ENCOUNTER 2024-02-05 08:24 | Outpatient (AMB) | payer MEDICARE, SELFPAY ==
--- NOTE | 2024-02-05 08:40 | MHC.PC.OV ---
Vital Signs 02/05/24 08:41 Height 6 ft Weight 205 lb 6 oz BMI 27.9 BP 126/80 Blood Pressure Location Lt brachial Position Sitting Pulse 71 Pulse Source Pulse Oximeter Pulse Oximetry (%) 94 Oxygen Delivery Method Room Air Intake Visit Reasons: [facility] ER discharge admitted 01/09 Labor Custodian Required: Yes Accompanied by: Spouse Allergies Iodinated Contrast Media [IV CONTRAST] Allergy (Mild, Verified 02/05/24 08:42) PATIENT STATES HISTORY OF IV REACTION FROM [facility] terazosin Adverse Reaction (Intermediate, Verified 02/05/24 08:42) blurry vision Penicillins Adverse Reaction (Mild, Verified 02/05/24 08:42) WEAKNESS Tobacco use date assessed: 02/05/24 Fall risk assessment: 2 + Falls in past year Last assessed Fall Risk: 02/05/24 Dental Screening Dental Screen Date: 02/05/24 Did you have a dental visit in the last 12 months?: Yes Did you have a dental problem in the last 6 months where you did not have access to dental care?: No Was dental information given to patient?: Patient has dentist HPI HPI Comments History of Present Illness Details 83 y/o male patient who presents to the clinic today for EDF. He was admitted at [facility] [place] on 01/10/24 for Right Olecranon Bursitis and discharged home the same day on Prednisone. PCP referred him to Orthopedics but he did not go no one called me . Per chart messages, the office tried to contact him 3 times with no response. Will have Air Support Control Officer assist him with the phone number. [facility] Medical History Pre-operative clearance Dyslipidemia Left sided lacunar infarction Left ventricular outflow tract obstruction BPH (benign prostatic hyperplasia) Podagra HLD (hyperlipidemia) Atypical chest pain Heart problem Surgical History No history of previous surgery Family History Mother No problems noted. Father No problems noted. Social History Housing: Apartment Alcohol intake: never Patient Tobacco Use Status: Never used Tobacco e-Cigarette/Vaping Use: Never Used Second Hand Smoke Exposure: No service: No Current occupational status: disabled Cognitive needs: No Hearing needs: No Vision needs: No Questionnaire PHQ-9 Over the last 2 weeks, how often have you been bothered by any of the following problems? 1. Little interest or pleasure in doing things: not at all 2. Feeling down, depressed, or hopeless: not at all 3. Trouble falling or staying asleep, or sleeping too much: not at all 4. Feeling tired or having little energy: not at all 5. Poor appetite or overeating: not at all 6. Feeling bad about yourself - or that you are a failure or have let yourself or your family down: not at all 7. Trouble concentrating on things, such as reading the newspaper or watching television: not at all 8. Moving or speaking so slowly that other people could have noticed. Or the opposite - being so fidgety or restless that you have been moving around a lot more than usual: not at all 9. Thoughts that you would be better off or of hurting yourself in some way: not at all Total score: 0 Depression Screening Interpretation: Negative Depression Screening Done: Yes 43643 - PHQ-9 Billing: Yes Source: Developed by Drs. Santos Celestin, Jennie Mendez, Guillermo Leonard and colleagues, with an educational nicolas from [employer]. Thrive Questionnaire Date Thrive assessed: 02/05/24 I am a: Patient What is your living situation today?: I have a steady place to live Within the past 12 months, did the food you bought not last and you didn't have the money to get more?: Never true Within the past 12 months, did you worry whether your food would run out before you got money to buy more?: Never true Do you have trouble paying for medicines?: No Do you have trouble getting transportation to medical appointments?: No Do you have trouble paying your heating and electricity bill?: No Do you have trouble taking care of your child, family member or friend?: No Do you have trouble with day-to-day activities such as bathing, preparing meals, shopping, managing finances, etc.?: No Are you currently unemployed and looking for a job?: No Are you interested in more education?: No Please select the resources that you would like help with: None Currently or been in a relationship where the following occur: No concerns reported THRIVE Score: 0 AUDIT C Alcohol Use Questionnaire (AUDIT-C) 1. How often do you have a drink containing alcohol?: Monthly or less 2. How many drinks containing alcohol do you have on a typical day when you are drinking?: 1 or 2 3. How often do you have six or more drinks on one occasion?: Never Total Score: 1 Score Reviewed/Action Taken: No DANISH-7 AMB Questionnaire DANISH-7 Date DANISH - 7 assessed: 02/05/24 Feeling nervous, anxious, or on edge: 0 = Not at all Not being able to stop or control worryin = Not at all Worrying too much about different things: 0 = Not at all Trouble relaxin = Not at all Being so restless that it is hard to sit still: 0 = Not at all Becoming easily annoyed or irritable: 0 = Not at all Feeling afraid as if something awful might happen: 0 = Not at all Total DANISH-7 score (0-4 normal; 5-9 mild; 10-14 moderate; 15-21 severe): 0 Source: Developed by Drs. Santos Celestin, Jennie Mendez, Guillermo Leonard and colleagues, with an educational nicolas from [employer]. Review of Systems Const All systems reviewed & are unremarkable except as noted in HPI and below Physical exam (Primary Care) Vital Signs: Last Vital Signs Pulse 71 02/05/24 08:41 BP 126/80 02/05/24 08:41 Pulse Ox 94 02/05/24 08:41 Oxygen Delivery Method Room Air 02/05/24 08:41 BMI result Body Mass Index 27.9 Tobacco/Smoking Status: Tobacco use Status Tobacco use date assessed 02/05/24 02/05/24 08:46 Patient Tobacco Use Status Never used Tobacco 02/05/24 08:46 e-Cigarette/Vaping Use Never Used 02/05/24 08:46 PHQ-9: PHQ-9 Score PHQ-9: Total score 0 02/05/24 08:50 Depression Screening Interpretation: Negative Thrive Assessment: Date of Thrive Assessment Date Thrive assessed 02/05/24 02/05/24 08:46 Currently or been in a relationship where the following occur: No concerns reported Const General: no acute distress Orientation/consciousness: patient oriented x3 Neuro General: patient oriented x3, gait normal and moves all extremities Extrem General: Yes full ROM Right upper extremity: elbow/forearm (bursitis) Details: normal ROM; no tenderness Left upper extremity: full ROM and elbow/forearm Details: normal ROM and warmth; no tenderness Psych Speech and movement: Normal speech and movement present Assessment and Plan Assessment & Plan (1) Olecranon bursitis: Code(s): M70.20 - Olecranon bursitis, unspecified elbow Qualifiers: Laterality: right Qualified Code(s): M70.21 - Olecranon bursitis, right elbow Plan: F/u with Orthopedics. Pt to call the Orthopedics office for an appointment. Coding Level of Care Code Est Pt Level 4 (66586) Diagnoses Olecranon bursitis of right elbow M70.21 Laterality: right Time Spent (min) 20 Comment Spent reviewing hospital notes.
[2024-02-05 08:41] VITALS: BP 126/80; PULSE 71; O2SAT 94; BMI 27.9
== END 2024-02-05 08:58 | disposition home or self-care (01) ==
PROVIDERS: PCP Internal Medicine; Visit Provider Nurse Practitioner Family
DX: M70.21 Olecranon bursitis, right elbow (principal)

== ENCOUNTER → 2024-02-05 08:24 | Outpatient (BNVA) | payer MEDICARE, SELFPAY | PROVIDERS: PCP Internal Medicine; Visit Provider Nurse Practitioner Family | DX: M70.21 Olecranon bursitis, right elbow (principal) | CPT/HCPCS: 96127; 99212 ==

== ENCOUNTER 2024-02-29 14:03 | Outpatient (AMB) | payer MEDICARE, SELFPAY ==
--- NOTE | 2024-02-29 14:05 | MHC.OFFVIS ---
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 Hx of Guot. Patient had noticed a lump on his elbow for more than 5 years. Patient reports when he is resting his elbow he tends to have a lot of pain. Hx of PT for his elbow with no relief. Slicing Machine Tender Services: Slicing Machine Tender Present (Dayton ([id number])) Allergies Iodinated Contrast Media [IV CONTRAST] Allergy (Mild, Verified 02/29/24 14:09) PATIENT STATES HISTORY OF IV REACTION FROM [facility] terazosin Adverse Reaction (Intermediate, Verified 02/29/24 14:09) blurry vision Penicillins Adverse Reaction (Mild, Verified 02/29/24 14:09) WEAKNESS HPI HPI TECHNICAL SUPPORT DIRECTOR- Left elbow pain: Details: Patient is an 83-year-old male who presents for evaluation of left elbow swelling with associated pain, ongoing for at least 5 years. The patient was previously evaluated in the emergency department, where he was diagnosed with olecranon bursitis of the left elbow. The patient states that this swelling than he has in his left elbow comes and goes with time, and does occasionally cause him pain. The patient does have a past medical history significant for gout, and he feels that this may be causing a lot of the discomfort in his left elbow. Patient denies any numbness or tingling in the left upper extremity. No other acute complaints or concerns at this time. [facility] Medical History Pre-operative clearance Dyslipidemia Left sided lacunar infarction Left ventricular outflow tract obstruction BPH (benign prostatic hyperplasia) Podagra HLD (hyperlipidemia) Atypical chest pain Heart problem Surgical History No history of previous surgery Family History Mother No problems noted. Father No problems noted. Social History Housing: Apartment Alcohol intake: never Patient Tobacco Use Status: Never used Tobacco e-Cigarette/Vaping Use: Never Used Second Hand Smoke Exposure: No service: No Current occupational status: disabled Cognitive needs: No Hearing needs: No Vision needs: No Physical Exam Vital Signs: BMI result Body Mass Index 27.8 Extrem Other: On inspection, there is noted to be an area of swelling on the olecranon process of the left elbow No erythema or ecchymosis noted No lacerations, abrasions, or open areas No evidence of infection There is a fluid filled area of swelling over the olecranon process of the left elbow that is painless to palpation No tenderness to palpation elsewhere in the left elbow Negative Cozen's Negative reverse Cozen's Patient is able to flex the elbow to approximately 140 degrees and extend to 0 degrees without difficulty Distal sensation intact Capillary refill brisk Assessment & Plan Assessment & Plan (1) Olecranon bursitis of left elbow: Code(s): M70.22 - Olecranon bursitis, left elbow Category: Medical Plan 1. Olecranon bursitis of left elbow Intermittent for approximately 5 years Patient is educated about this condition and the treatment options available Patient was provided with 2 Kenney bandages in the office today to apply gentle compression to the elbow Patient is educated that these are to be worn throughout the day, and then the only way to encourage the olecranon bursa to go back down to a normal size is consistent compression Patient understands this and is amenable to this plan Patient will follow-up as needed with any acute concerns Coding Level of Care Code New Pt Level 3 (89206) Diagnoses Olecranon bursitis of left elbow M70.22
[2024-02-29 14:09] VITALS: BMI 27.8
== END 2024-02-29 14:32 | disposition home or self-care (01) ==
PROVIDERS: PCP Internal Medicine
DX: M70.22 Olecranon bursitis, left elbow (principal)
CPT/HCPCS: 99203

== ENCOUNTER → 2024-02-29 14:03 | Outpatient (BNVA) | payer MEDICARE, SELFPAY | PROVIDERS: PCP Internal Medicine | DX: M70.22 Olecranon bursitis, left elbow (principal) | CPT/HCPCS: 99202 ==

== ENCOUNTER 2024-06-08 08:56 | Outpatient (AMB) | payer MEDICARE, SELFPAY ==
[2024-06-08 09:14] VITALS: BP 130/72; PULSE 63; TEMP 36.3; O2SAT 96; BMI 27.4
--- NOTE | 2024-06-08 09:14 | A.OFFPC_ITS ---
Vital Signs 06/08/24 09:14 Height 6 ft Weight 202 lb BMI 27.4 BP 130/72 Blood Pressure Location Lt brachial Position Sitting Pulse 63 Pulse Source Pulse Oximeter Temp 97.3 F Temp Source Temporal Artery Scan Pulse Oximetry (%) 96 Oxygen Delivery Method Room Air Intake Visit Reasons: 06/04/24 [facility] ER discharge Allergies Iodinated Contrast Media [IV CONTRAST] Allergy (Mild, Verified 06/08/24 20:19) PATIENT STATES HISTORY OF IV REACTION FROM [facility] terazosin Adverse Reaction (Intermediate, Verified 06/08/24 20:19) blurry vision Penicillins Adverse Reaction (Mild, Verified 06/08/24 20:19) WEAKNESS Medication List - Last Reconciled 06/08/24 by KEHINDE Robles allopurinol 300 mg PO DAILY 90 days aspirin 81 mg PO DAILY 90 days atorvastatin 40 mg PO BEDTIME 90 days cholecalciferol (vitamin D3) 25 mcg PO DAILY 90 days Tobacco use date assessed: 02/05/24 Dental Screening Dental Screen Date: 02/05/24 HPI 06/04/24 [facility] ER discharge HPI Details The patient is a 83 y/o male with significant past medical gout, CAD, TIA, dyslipidemia, BRYAN, BPH Patient of Dr. Martinez, was last seen on 02/05/24 The patient is presenting of post ED visit for right knee gout. Per chart review: the patient went in with 3 days of severe right knee pain and swelling. He has had a joint effusion to the right knee in the past but never been tapped Right knee x-ray shows no evidence of fracture. WBC 20,000 consistent with inflammatory changes that is concerning for septic joint. Assessment for gout cystals are pending. The patient became less after his right knee was aspirated (60 ml). The patient is presenting in office today He reports that he has had gout for years, but they are telling him in the hospital that he might not have gout He reports chat he had stop taking his allopurinol because this was said to him better The patient was instructed to start taking is allopurinal again cochicine ordered and along with a prednisone tapered labs was ordered for the patient to do as soon as possible The patient denies sob, chest pain, heart palpitation, or dizziness Denies stomach pain changes in bowel habits [facility] Medical History (Updated 06/09/24 @ 05:31 by Juan Shepard MD) Dyslipidemia Left sided lacunar infarction Left ventricular outflow tract obstruction BPH (benign prostatic hyperplasia) Podagra HLD (hyperlipidemia) Atypical chest pain Surgical History No history of previous surgery Family History Mother No problems noted. Father No problems noted. Social History Housing: Apartment Alcohol intake: never Patient Tobacco Use Status: Never used Tobacco e-Cigarette/Vaping Use: Never Used Second Hand Smoke Exposure: No service: No Current occupational status: disabled Cognitive needs: No Hearing needs: No Vision needs: No Questionnaire Thrive Questionnaire Date Thrive assessed: 02/05/24 DANISH-7 AMB Questionnaire DANISH-7 Date DANISH - 7 assessed: 02/05/24 Source: Developed by Drs. Santos Celestin, Jennie Mendez, Guillermo Leonard and colleagues, with an educational nicolas from [employer]. Review of Systems Const Details: Denies chills, Denies fatigue, Denies fever(s), Denies headache(s) and Denies weakness HEENT Denies change in vision, Denies dizziness, Denies headache(s), Denies hearing loss, Denies nasal congestion, Denies sinus pain, Denies sinus pressure and Denies sore throat Card Denies chest pain, Denies lightheadedness, Denies dyspnea and Denies other (palpitations) Resp Denies cough, Denies dyspnea and Denies wheezing GI Denies abdominal pain, Denies melena, Denies hematochezia, Denies change in bowel habits, Denies dyspepsia and Denies nausea Denies hematuria and Denies dysuria Musc Denies abnormal gait, using a cane to assist with ambulation, reports right knee pain, recurrent arthralgias, Denies numbness and Denies tingling Skin/Breast Denies rash, Denies unusual bruising and Denies wounds Neuro Denies abnormal gait, Denies dizziness, Denies headache(s), Denies memory loss, Denies numbness, Denies Sensory deficit (Neuro), Denies tingling and Denies weakness Psych Denies anxiety, Denies depression and Denies memory loss Endo Denies cold intolerance, Denies fatigue, Denies heat intolerance, Denies polydipsia and Denies polyuria Anthony/Lymph Denies easy bleeding and Denies easy bruising Aller/Immun Denies wheezing Physical exam (Primary Care) Vital Signs: Last Vital Signs Temp 97.3 F 06/08/24 09:14 Pulse 63 06/08/24 09:14 BP 130/72 06/08/24 09:14 Pulse Ox 96 06/08/24 09:14 Oxygen Delivery Method Room Air 06/08/24 09:14 BMI result Body Mass Index 27.4 Tobacco/Smoking Status: Tobacco use Status Tobacco use date assessed 06/08/24 06/08/24 09:22 Patient Tobacco Use Status Never used Tobacco 06/08/24 09:22 e-Cigarette/Vaping Use Never Used 06/08/24 09:22 PHQ-9: PHQ-9 Score PHQ-9: Total score 0 06/08/24 09:22 Thrive Assessment: Date of Thrive Assessment Date Thrive assessed 06/08/24 06/08/24 09:22 Const Other: General: no acute distress, well developed, alert and awake Nutritional Appearance: well nourished Orientation/consciousness: patient oriented x3 HENMT Head: Yes normocephalic and Yes atraumatic Ears: hearing grossly normal bilaterally and TM's normal bilaterally General nose exam: Normal external nose present and Normal nares present Mouth: Normal oral and palatal mucosa present and moist mucous membranes Eyes Pupils: Equal, round and reactive pupils present and Pupil accommodation reflex normal EOM: EOMs intact bilaterally Neck Neck: Yes normal visual inspection, Yes no lymphadenopathy and Yes trachea midline Thyroid: Thyroid normal Carotids: no bruits Lymphatic: no lymphadenopathy noted Resp Effort & Inspection: normal respiratory effort Auscultation: clear to auscultation bilaterally Cardio Rate: regular rate Rhythm: regular rhythm Heart sounds: S1 normal heart sound present, S2 normal heart sound present, no gallops, no murmurs and no rubs GI Palpation (GI): abdomen soft and nontender to palpation present Auscultation: normal bowel sounds General: Yes no CVA tenderness Back/Spine/Pelvis Back: no CVA tenderness Cervical Spine: cervical ROM normal and No Cervical spine tenderness Thoracic/Lumbar Spine: thoraco-lumbar ROM normal, No pain with thoraco-lumbar ROM, --No thoracic spinal tenderness and No lumbar spinal tenderness ---right knee edema, tenderness, no redness Skin General: warm and dry. Normal skin color. Normal skin turgor Lesions: no lesions Nails: normal Neuro General: patient oriented x3, gait normal Cranial nerves: Yes Equal, round and reactive pupils present Cognition (Neuro): normal cognition Gait exam (Neuro): limping with ambulation Extrem General: Yes normal to inspection, No edema and No calf tenderness Psych Appearance: grossly normal Affect: normal affect Attitude: cooperative Thought process: Normal thought process present Coding Level of Care Code Est Pt Level 4 (16985) Diagnoses Dyslipidemia E78.5 Acute idiopathic gout of right elbow M10.021 Chronicity: acute Gout etiology: idiopathic Gout site: elbow Laterality: right Hypovitaminosis D E55.9 Coronary artery disease, unspecified vessel or lesion type, unspecified whether angina present, unspecified whether [place] or transplanted heart I25.10 Associated angina: unspecified whether angina present Coronary Disease-Associated Artery/Lesion type: unspecified vessel or lesion type [place] vs. transplanted heart: unspecified whether [place] or transplanted heart TIA (transient ischemic attack) G45.9 Time Spent (min) 31 Assessment & Plan Assessment & Plan (1) Dyslipidemia: Code(s): E78.5 - Hyperlipidemia, unspecified Category: Medical Plan: reinforced a diet low in cholesterol continue atorvastatin 40 mg at bedtime (2) Gout: Code(s): M10.9 - Gout, unspecified Category: Medical Qualifiers: Chronicity: acute Gout etiology: idiopathic Gout site: elbow Laterality: right Qualified Code(s): M10.021 - Idiopathic gout, right elbow Plan: Reports that he had stopped taking his allopurinol for a while The patient to start taking his allopurinol order colchicine and prednisone (3) Hypovitaminosis D: Code(s): E55.9 - Vitamin D deficiency, unspecified Category: Medical Plan: continue cholecalciferol 25 mcg daily labs ordered for the patient to do cherry (4) CAD (coronary artery disease): Code(s): I25.10 - Atherosclerotic heart disease of [place] coronary artery without angina pectoris Category: Medical Qualifiers: Associated angina: unspecified whether angina present Coronary Disease- Associated Artery/Lesion type: unspecified vessel or lesion type [place] vs. transplanted heart: unspecified whether [place] or transplanted heart Qualified Code(s): I25.10 - Atherosclerotic heart disease of [place] coronary artery without angina pectoris Plan: continue aspirin 81 mg daily (5) TIA (transient ischemic attack): Code(s): G45.9 - Transient cerebral ischemic attack, unspecified Category: Medical Plan: continue atorvastatin 40 mg at bedtime Plan Follow up in 1 month Orders: Orders Lipid Panel 06/08/24 E55.9 - Vitamin D deficiency, unspecified, E78.5 - Hyperlipidemia, unspecified, G47.33 - Obstructive sleep apnea (adult) (pediatric), I25.10 - Atherosclerotic heart disease of [place] coronary artery without angina pectoris, M10.021 - Idiopathic gout, right elbow, M10.9 - Gout, unspecified UA CC w/rflx Micro + Cult 06/08/24 E55.9 - Vitamin D deficiency, unspecified, E78.5 - Hyperlipidemia, unspecified, G47.33 - Obstructive sleep apnea (adult) (pediatric), I25.10 - Atherosclerotic heart disease of [place] coronary artery without angina pectoris, M10.021 - Idiopathic gout, right elbow, M10.9 - Gout, unspecified Complete Blood Count Auto Diff 06/08/24 E55.9 - Vitamin D deficiency, unspecified, E78.5 - Hyperlipidemia, unspecified, G47.33 - Obstructive sleep apnea (adult) (pediatric), I25.10 - Atherosclerotic heart disease of [place] coronary artery without angina pectoris, M10.021 - Idiopathic gout, right elbow, M10.9 - Gout, unspecified Comprehensive [place]. Panel Fast 06/08/24 E55.9 - Vitamin D deficiency, unspecified, E78.5 - Hyperlipidemia, unspecified, G47.33 - Obstructive sleep apnea (adult) (pediatric), I25.10 - Atherosclerotic heart disease of [place] coronary artery without angina pectoris, M10.021 - Idiopathic gout, right elbow, M10.9 - Gout, unspecified Vitamin D 25-OH Total 06/08/24 E55.9 - Vitamin D deficiency, unspecified, E78.5 - Hyperlipidemia, unspecified, G47.33 - Obstructive sleep apnea (adult) (pediatric), I25.10 - Atherosclerotic heart disease of [place] coronary artery without angina pectoris, M10.021 - Idiopathic gout, right elbow, M10.9 - Gout, unspecified TSH reflex Free T4 06/08/24 E55.9 - Vitamin D deficiency, unspecified, E78.5 - Hyperlipidemia, unspecified, G47.33 - Obstructive sleep apnea (adult) (pediatric), I25.10 - Atherosclerotic heart disease of [place] coronary artery without angina pectoris, M10.021 - Idiopathic gout, right elbow, M10.9 - Gout, unspecified Uric Acid 06/08/24 E55.9 - Vitamin D deficiency, unspecified, E78.5 - Hyperlipidemia, unspecified, G47.33 - Obstructive sleep apnea (adult) (pediatric), I25.10 - Atherosclerotic heart disease of [place] coronary artery without angina pectoris, M10.021 - Idiopathic gout, right elbow, M10.9 - Gout, unspecified Medications: New colchicine then 0.6 mg daily x 4 days 1.2 mg (2 x 0.6 mg) PO ONCE 6 tabs 0RF prednisone see taper instructions take 4 tabs x2 days, take 3 tabs x2 days, take 2 tabs x2 days, take 1 tab x2 days= 20 tabs for 8 days 10 mg PO DIRECTED 20 tabs 0RF
--- NOTE | 2024-06-08 09:14 | MHC.PC.OV ---
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 Accompanied by: Self / Same As Patient Allergies Iodinated Contrast Media [IV CONTRAST] Allergy (Mild, Verified 06/08/24 20:19) PATIENT STATES HISTORY OF IV REACTION FROM [facility] terazosin Adverse Reaction (Intermediate, Verified 06/08/24 20:19) blurry vision Penicillins Adverse Reaction (Mild, Verified 06/08/24 20:19) WEAKNESS Medication List - Last Reconciled 06/08/24 by KEHINDE Robles allopurinol 300 mg PO DAILY 90 days aspirin 81 mg PO DAILY 90 days atorvastatin 40 mg PO BEDTIME 90 days cholecalciferol (vitamin D3) 25 mcg PO DAILY 90 days Tobacco use date assessed: 06/08/24 Fall risk assessment: 1 Fall in past year Last assessed Fall Risk: 06/08/24 Dental Screening Dental Screen Date: 06/08/24 Did you have a dental visit in the last 12 months?: No Did you have a dental problem in the last 6 months where you did not have access to dental care?: No Was dental information given to patient?: Patient has dentist [facility] Medical History (Updated 06/09/24 @ 05:31 by Juan Shepard MD) Dyslipidemia Left sided lacunar infarction Left ventricular outflow tract obstruction BPH (benign prostatic hyperplasia) Podagra HLD (hyperlipidemia) Atypical chest pain Surgical History No history of previous surgery Family History Mother No problems noted. Father No problems noted. Social History Housing: Apartment Alcohol intake: never Patient Tobacco Use Status: Never used Tobacco e-Cigarette/Vaping Use: Never Used Second Hand Smoke Exposure: No service: No Current occupational status: disabled Cognitive needs: No Hearing needs: No Vision needs: No Questionnaire PHQ-9 Over the last 2 weeks, how often have you been bothered by any of the following problems? 1. Little interest or pleasure in doing things: not at all 2. Feeling down, depressed, or hopeless: not at all 3. Trouble falling or staying asleep, or sleeping too much: not at all 4. Feeling tired or having little energy: not at all 5. Poor appetite or overeating: not at all 6. Feeling bad about yourself - or that you are a failure or have let yourself or your family down: not at all 7. Trouble concentrating on things, such as reading the newspaper or watching television: not at all 8. Moving or speaking so slowly that other people could have noticed. Or the opposite - being so fidgety or restless that you have been moving around a lot more than usual: not at all 9. Thoughts that you would be better off or of hurting yourself in some way: not at all Total score: 0 Depression Screening Interpretation: Negative Depression Screening Done: Yes Source: Developed by Drs. Santos Celestin, Jennie Mendez, Guillermo Leonard and colleagues, with an educational nicolas from [employer]. Thrive Questionnaire Date Thrive assessed: 06/08/24 I am a: Patient What is your living situation today?: I have a steady place to live Within the past 12 months, did the food you bought not last and you didn't have the money to get more?: Never true Within the past 12 months, did you worry whether your food would run out before you got money to buy more?: Never true Do you have trouble paying for medicines?: No Do you have trouble getting transportation to medical appointments?: No Do you have trouble paying your heating and electricity bill?: No Do you have trouble taking care of your child, family member or friend?: No Do you have trouble with day-to-day activities such as bathing, preparing meals, shopping, managing finances, etc.?: No Are you currently unemployed and looking for a job?: No Are you interested in more education?: No Please select the resources that you would like help with: None Currently or been in a relationship where the following occur: No concerns reported THRIVE Score: 0 AUDIT C Alcohol Use Questionnaire (AUDIT-C) 1. How often do you have a drink containing alcohol?: Monthly or less 2. How many drinks containing alcohol do you have on a typical day when you are drinking?: 1 or 2 3. How often do you have six or more drinks on one occasion?: Never Total Score: 1 DANISH-7 AMB Questionnaire DANISH-7 Date DANISH - 7 assessed: 06/08/24 Feeling nervous, anxious, or on edge: 0 = Not at all Not being able to stop or control worryin = Not at all Worrying too much about different things: 0 = Not at all Trouble relaxin = Not at all Being so restless that it is hard to sit still: 0 = Not at all Becoming easily annoyed or irritable: 0 = Not at all Feeling afraid as if something awful might happen: 0 = Not at all Total DANISH-7 score (0-4 normal; 5-9 mild; 10-14 moderate; 15-21 severe): 0 Source: Developed by Drs. Santos Celestin, Jennie Mendez, Guillermo Leonard and colleagues, with an educational nicolas from [employer]. Physical exam (Primary Care) Vital Signs: Last Vital Signs Temp 97.3 F 06/08/24 09:14 Pulse 63 06/08/24 09:14 BP 130/72 06/08/24 09:14 Pulse Ox 96 06/08/24 09:14 Oxygen Delivery Method Room Air 06/08/24 09:14 BMI result Body Mass Index 27.4 Tobacco/Smoking Status: Tobacco use Status Tobacco use date assessed 06/08/24 06/08/24 09:22 Patient Tobacco Use Status Never used Tobacco 06/08/24 09:22 e-Cigarette/Vaping Use Never Used 06/08/24 09:22 PHQ-9: PHQ-9 Score PHQ-9: Total score 0 06/08/24 09:22 Depression Screening Interpretation: Negative Thrive Assessment: Date of Thrive Assessment Date Thrive assessed 06/08/24 06/08/24 09:22 Currently or been in a relationship where the following occur: No concerns reported Coding Assessment & Plan Assessment & Plan Orders: Orders Lipid Panel 06/08/24 E55.9 - Vitamin D deficiency, unspecified, E78.5 - Hyperlipidemia, unspecified, G47.33 - Obstructive sleep apnea (adult) (pediatric), I25.10 - Atherosclerotic heart disease of [place] coronary artery without angina pectoris, M10.021 - Idiopathic gout, right elbow, M10.9 - Gout, unspecified UA CC w/rflx Micro + Cult 06/08/24 E55.9 - Vitamin D deficiency, unspecified, E78.5 - Hyperlipidemia, unspecified, G47.33 - Obstructive sleep apnea (adult) (pediatric), I25.10 - Atherosclerotic heart disease of [place] coronary artery without angina pectoris, M10.021 - Idiopathic gout, right elbow, M10.9 - Gout, unspecified Complete Blood Count Auto Diff 06/08/24 E55.9 - Vitamin D deficiency, unspecified, E78.5 - Hyperlipidemia, unspecified, G47.33 - Obstructive sleep apnea (adult) (pediatric), I25.10 - Atherosclerotic heart disease of [place] coronary artery without angina pectoris, M10.021 - Idiopathic gout, right elbow, M10.9 - Gout, unspecified Comprehensive [place]. Panel Fast 06/08/24 E55.9 - Vitamin D deficiency, unspecified, E78.5 - Hyperlipidemia, unspecified, G47.33 - Obstructive sleep apnea (adult) (pediatric), I25.10 - Atherosclerotic heart disease of [place] coronary artery without angina pectoris, M10.021 - Idiopathic gout, right elbow, M10.9 - Gout, unspecified Vitamin D 25-OH Total 06/08/24 E55.9 - Vitamin D deficiency, unspecified, E78.5 - Hyperlipidemia, unspecified, G47.33 - Obstructive sleep apnea (adult) (pediatric), I25.10 - Atherosclerotic heart disease of [place] coronary artery without angina pectoris, M10.021 - Idiopathic gout, right elbow, M10.9 - Gout, unspecified TSH reflex Free T4 06/08/24 E55.9 - Vitamin D deficiency, unspecified, E78.5 - Hyperlipidemia, unspecified, G47.33 - Obstructive sleep apnea (adult) (pediatric), I25.10 - Atherosclerotic heart disease of [place] coronary artery without angina pectoris, M10.021 - Idiopathic gout, right elbow, M10.9 - Gout, unspecified Uric Acid 06/08/24 E55.9 - Vitamin D deficiency, unspecified, E78.5 - Hyperlipidemia, unspecified, G47.33 - Obstructive sleep apnea (adult) (pediatric), I25.10 - Atherosclerotic heart disease of [place] coronary artery without angina pectoris, M10.021 - Idiopathic gout, right elbow, M10.9 - Gout, unspecified Medications: New colchicine then 0.6 mg daily x 4 days 1.2 mg (2 x 0.6 mg) PO ONCE 6 tabs 0RF prednisone see taper instructions take 4 tabs x2 days, take 3 tabs x2 days, take 2 tabs x2 days, take 1 tab x2 days= 20 tabs for 8 days 10 mg PO DIRECTED 20 tabs 0RF
--- OUTSIDE RECORDS SUMMARY | 2024-06-08 10:09 | XMS_ITS | Continuity of Care Document ---
Author Organization [facility] Address [address] [address] Phone Care Team Providers Care Local Delivery Driver Name Role Phone [place] [facility] FONSECA Unavailable Unavailable Advance Directives Directive Yes / No Effective Date File Name No Information Encounters Encounter Description Practice Location Reason(s) For Visit Diagnoses Date Provider Providers Copied on Encounter [facility], [address], [id number], [place] tel:[phone] [facility] No Information [place] [facility]. [address] [place], [address]. tel:[phone] Family History Family Member Type Diagnosis Age At Onset No Information Payers Payer name Insurance type Covered libertarian ID Authoriza tion(s) No Information Social History Type Description Quantity Date Captured Comments Sex Male Smoking Status No Information Chief Complaint And Reason For Visit No Information Reason For Referral Reason For Referral No Information History Of Present Illness Encounter Date Complaint History Of Prese nt Illness No Information Functional Status Date Functional Assessmen t No Information Instructions Date Instruction Additional Infor mation No Information Assessments Type Assessment Date No Information Patient Care Teams Name Effective Dates (start - stop) Status Members No Information
== END 2024-06-08 10:00 | disposition home or self-care (01) ==
PROVIDERS: PCP Internal Medicine
DX: E78.5 Hyperlipidemia, unspecified (principal); M10.021 Idiopathic gout, right elbow; E55.9 Vitamin D deficiency, unspecified; I25.10 Atherosclerotic heart disease of native coronary artery without angina pectoris; G45.9 Transient cerebral ischemic attack, unspecified

== ENCOUNTER → 2024-06-08 08:56 | Outpatient (BNVA) | payer MEDICARE, SELFPAY | PROVIDERS: PCP Internal Medicine | DX: E78.5 Hyperlipidemia, unspecified (principal); M10.021 Idiopathic gout, right elbow; E55.9 Vitamin D deficiency, unspecified; I25.10 Atherosclerotic heart disease of native coronary artery without angina pectoris; G45.9 Transient cerebral ischemic attack, unspecified | CPT/HCPCS: 99212 ==

== ENCOUNTER 2024-08-19 09:22 | Outpatient (AMB) | payer MEDICARE, MEDICAID, SELFPAY ==
--- NOTE | 2024-08-19 09:27 | A.OFFPC_ITS ---
Vital Signs 3 08/19/24 09:28 Height 6 ft Weight 201 lb 8 oz BMI 27.3 BP 100/64 Blood Pressure Location Lt brachial Position Sitting Pulse 85 Pulse Source Pulse Oximeter Temp 97.1 F Temp Source Temporal Artery Scan Pulse Oximetry (%) 95 Oxygen Delivery Method Room Air Intake Visit Reasons: Discharge [facility] 08/13/24 Intake Note: Patient is here to follow-up after a visit the emergency department at [facility] on 08/13/24 Manufacturing Finance Manager Required: No Mixer Diamond Powder: Present Accompanied by: Spouse Allergies Iodinated Contrast Media [IV CONTRAST] Allergy (Mild, Verified 08/19/24 09:28) PATIENT STATES HISTORY OF IV REACTION FROM [facility] terazosin Adverse Reaction (Intermediate, Verified 08/19/24 09:28) blurry vision Penicillins Adverse Reaction (Mild, Verified 08/19/24 09:28) WEAKNESS Tobacco use date assessed: 08/19/24 Fall risk assessment: No Falls in past year Last assessed Fall Risk: 08/19/24 Dental Screening Dental Screen Date: 08/19/24 Did you have a dental visit in the last 12 months?: Yes Did you have a dental problem in the last 6 months where you did not have access to dental care?: No Was dental information given to patient?: Patient has dentist HPI HPI Comments 2 History of Present Illness0 Details 83 y/o Male patient who presents to the clinic for HDF. He was admitted at [facility] ED on 08/11/24 for Gout Flare up and Left Knee rogers's Cyst. U/S Left lower extremity negative for DVT but positive for Popliteal Cyst. Pt currently takes Allopurinol for Gout. Pt was given information on Gout Dietary restrictions but he is confused because he does not eat any of the Foods listed. Pt asking to see Environmental Systems Coordinator for Guidance. Pt also asking for Orthopedics referral for the Popliteal Cyst left Knee. [facility] Medical History (Updated 08/19/24 @ 10:06 by Elif Hassan NP) Rogers's cyst of knee Dyslipidemia Left sided lacunar infarction Left ventricular outflow tract obstruction BPH (benign prostatic hyperplasia) Podagra HLD (hyperlipidemia) Atypical chest pain Surgical History No history of previous surgery Family History Mother No problems noted. Father No problems noted. Social History Housing: Apartment Alcohol intake: never Patient Tobacco Use Status: Never used Tobacco e-Cigarette/Vaping Use: Never Used Second Hand Smoke Exposure: No service: No Current occupational status: disabled Cognitive needs: No Hearing needs: No Vision needs: No Questionnaire PHQ-9 Over the last 2 weeks, how often have you been bothered by any of the following problems? 1. Little interest or pleasure in doing things: not at all 2. Feeling down, depressed, or hopeless: not at all 3. Trouble falling or staying asleep, or sleeping too much: not at all 4. Feeling tired or having little energy: not at all 5. Poor appetite or overeating: not at all 6. Feeling bad about yourself - or that you are a failure or have let yourself or your family down: not at all 7. Trouble concentrating on things, such as reading the newspaper or watching television: not at all 8. Moving or speaking so slowly that other people could have noticed. Or the opposite - being so fidgety or restless that you have been moving around a lot more than usual: not at all 9. Thoughts that you would be better off or of hurting yourself in some way: not at all Total score: 0 Depression Screening Interpretation: Negative Depression Screening Done: Yes Source: Developed by Drs. Santos Celestin, Jennie Mendez, Guillermo Leonard and colleagues, with an educational nicolas from [employer]. Thrive Questionnaire Date Thrive assessed: 08/19/24 I am a: Patient What is your living situation today?: I have a steady place to live Within the past 12 months, did the food you bought not last and you didn't have the money to get more?: Never true Within the past 12 months, did you worry whether your food would run out before you got money to buy more?: Never true Do you have trouble paying for medicines?: No Do you have trouble getting transportation to medical appointments?: No Do you have trouble paying your heating and electricity bill?: No Do you have trouble taking care of your child, family member or friend?: No Do you have trouble with day-to-day activities such as bathing, preparing meals, shopping, managing finances, etc.?: No Are you currently unemployed and looking for a job?: No Are you interested in more education?: No Please select the resources that you would like help with: None Currently or been in a relationship where the following occur: No concerns reported THRIVE Score: 0 AUDIT C Alcohol Use Questionnaire (AUDIT-C) 1. How often do you have a drink containing alcohol?: Monthly or less 2. How many drinks containing alcohol do you have on a typical day when you are drinking?: 1 or 2 Total Score: 1 DANISH-7 AMB Questionnaire DANISH-7 Date DANISH - 7 assessed: 08/19/24 Feeling nervous, anxious, or on edge: 0 = Not at all Not being able to stop or control worryin = Not at all Worrying too much about different things: 0 = Not at all Trouble relaxin = Not at all Being so restless that it is hard to sit still: 0 = Not at all Becoming easily annoyed or irritable: 0 = Not at all Feeling afraid as if something awful might happen: 0 = Not at all Total DANISH-7 score (0-4 normal; 5-9 mild; 10-14 moderate; 15-21 severe): 0 Source: Developed by Drs. Santos Celestin, Jennie Mendez, Guillermo Leonard and colleagues, with an educational nicolas from [employer]. Review of Systems Const All systems reviewed & are unremarkable except as noted in HPI and below Physical exam (Primary Care) Vital Signs: Last Vital Signs Temp 97.1 F 08/19/24 09:28 Pulse 85 08/19/24 09:28 BP 100/64 08/19/24 09:28 Pulse Ox 95 08/19/24 09:28 Oxygen Delivery Method Room Air 08/19/24 09:28 BMI result Body Mass Index 27.3 Tobacco/Smoking Status: Tobacco use Status Tobacco use date assessed 08/19/24 08/19/24 09:32 Patient Tobacco Use Status Never used Tobacco 08/19/24 09:32 e-Cigarette/Vaping Use Never Used 08/19/24 09:32 PHQ-9: PHQ-9 Score PHQ-9: Total score 0 08/19/24 10:06 Depression Screening Interpretation: Negative Thrive Assessment: Date of Thrive Assessment Date Thrive assessed 08/19/24 08/19/24 09:32 Currently or been in a relationship where the following occur: No concerns reported Const General: no acute distress Orientation/consciousness: patient oriented x3 Skin General skin exam: no rashes or lesions noted Neuro General: patient oriented x3, gait normal and moves all extremities Extrem Right lower extremity: normal to inspection and full ROM Left lower extremity: knee Details: tenderness Location: of the patella and of the popliteal fossa, swelling (The whole Lower left extremity swollen) and normal ROM; no abrasions, no ecchymosis, no crepitus, no deformity and no unusual warmth Knee images: 2 1. Small size Rogers's Cyst Palpable. Psych Speech and movement: Normal speech and movement present Coding Level of Care Code Est Pt Level 4 (49200) Diagnoses Synovial cyst of left knee M71.22 Laterality: left Acute idiopathic gout of right elbow M10.021 Chronicity: acute Gout etiology: idiopathic Gout site: elbow Laterality: right Time Spent (min) 20 Assessment & Plan Assessment & Plan (1) Rogers's cyst of knee: Code(s): M71.20 - Synovial cyst of popliteal space [Rogers], unspecified knee Category: Medical Qualifiers: Laterality: left Qualified Code(s): M71.22 - Synovial cyst of popliteal space [Rogers], left knee Plan: Ordered Prednisone for 10 days. Placed referral to Orthopedics as requested. (2) Gout: Code(s): M10.9 - Gout, unspecified Category: Medical Qualifiers: Chronicity: acute Gout etiology: idiopathic Gout site: elbow L aterality: right Qualified Code(s): M10.021 - Idiopathic gout, right elbow Plan: Continue on Allopurinol as directed. Ordered Prednisone. Placed referral to Environmental Systems Coordinator. Orders: Referrals 2 Orthopedics Referral M71.22 - Synovial cyst of popliteal space [Rogers], left knee Medical Nutrition Therapy Referral M10.021 - Idiopathic gout, right elbow Medications: New 2 prednisone 20 mg PO DAILY 10 tabs 0RF 10 days M10.021 - Idiopathic gout, right elbow, M71.22 - Synovial cyst of popliteal space [Rogers], left knee Changed 2 From allopurinol 300 mg PO DAILY 90 days 90 tabs 1RF M10.021 - Idiopathic gout, right elbow To allopurinol 300 mg PO DAILY 90 tabs 0RF M10.021 - Idiopathic gout, right elbow Discontinued 2 colchicine then 0.6 mg daily x 4 days Discontinued Reason: Patient Completed Course 1.2 mg (2 x 0.6 mg) PO ONCE 6 tabs 0RF prednisone see taper instructions take 4 tabs x2 days, take 3 tabs x2 days, take 2 tabs x2 days, take 1 tab x2 days= 20 tabs for 8 days Discontinued Reason: Patient Completed Course 10 mg PO DIRECTED 20 tabs 0RF
[2024-08-19 09:28] VITALS: BP 100/64; PULSE 85; TEMP 36.2; O2SAT 95; BMI 27.3
--- OUTSIDE RECORDS SUMMARY | 2024-08-19 09:45 | XMS_ITS | Continuity of Care Document ---
Author Organization Formerly [facility] Address [address] [address] Phone Care Team Providers Care Transit Mix Operator Name Role Phone [place] Awilda FONSECA Unavailable Unavailable Advance Directives Directive Yes / No Effective Date File Name No Information Encounters Encounter Description Practice Location Reason(s) For Visit Diagnoses Date Provider [facility], [address] [address], [place], [place], [id number], tel:[phone] No Information [address] [place], [address]. tel:[phone] Family History Family Member Type Diagnosis Age At Onset No Information Payers Payer name Insurance type Covered green party ID Authoriza tion(s) No Information Social History Type Description Quantity Date Captured Comments Sex Male Smoking Status No Information Chief Complaint And Reason For Visit No Information History Of Present Illness Encounter Date Complaint History Of Prese nt Illness No Information Instructions Date Instruction Additional Infor mation No Information Assessments Type Assessment Date No Information
== END 2024-08-19 10:35 | disposition home or self-care (01) ==
LOC: HO.HMCH 09:22
PROVIDERS: PCP Internal Medicine; Visit Provider Nurse Practitioner Family
DX: M71.22 Synovial cyst of popliteal space [Baker], left knee (principal); M10.021 Idiopathic gout, right elbow

== ENCOUNTER → 2024-08-19 09:22 | Outpatient (BNVA) | payer MEDICARE, MEDICAID, SELFPAY | PROVIDERS: PCP Internal Medicine; Visit Provider Nurse Practitioner Family | DX: M71.22 Synovial cyst of popliteal space [Baker], left knee (principal); M10.021 Idiopathic gout, right elbow | CPT/HCPCS: 96127; 99212 ==

== ENCOUNTER 2025-01-26 17:04 | Outpatient (AMB) | payer MEDICARE, MEDICAID, SELFPAY ==
[2025-01-26 17:10] VITALS: BP 100/62; PULSE 75; RESP 18; TEMP 36.2; O2SAT 96; BMI 27.2
--- NOTE | 2025-01-26 17:10 | A.OFFPC_ITS ---
Vital Signs 01/26/25 17:10 Height 6 ft Weight 200 lb 6 oz BMI 27.2 BP 100/62 Blood Pressure Location Lt brachial Position Sitting Respiration 18 Pulse 75 Pulse Source Pulse Oximeter Temp 97.1 F Temp Source Temporal Artery Scan Pulse Oximetry (%) 96 Oxygen Delivery Method Room Air Intake Visit Reasons: follow up Insurance Customer Service Specialist Required: No Accompanied by: Self / Same As Patient Allergies Iodinated Contrast Media (IV CONTRAST) Allergy (Mild, Verified 01/26/25 17:38) PATIENT STATES HISTORY OF IV REACTION FROM [facility] terazosin Adverse Reaction (Intermediate, Verified 01/26/25 17:38) blurry vision Penicillins Adverse Reaction (Mild, Verified 01/26/25 17:38) WEAKNESS Medication List - Last Reconciled 01/26/25 by Nathalie Damon MD allopurinol 300 mg PO DAILY aspirin 81 mg PO DAILY 90 days atorvastatin 40 mg PO BEDTIME 90 days cholecalciferol (vitamin D3) 25 mcg PO DAILY 90 days prednisone 20 mg PO DAILY 10 days Tobacco use date assessed: 01/26/25 Fall risk assessment: 1 Fall in past year Last assessed Fall Risk: 01/26/25 Dental Screening Dental Screen Date: 01/26/25 Did you have a dental visit in the last 12 months?: Yes Did you have a dental problem in the last 6 months where you did not have access to dental care?: No Was dental information given to patient?: Patient has dentist HPI HPI Comments History of Present Illness Details The patient is an 84-year-old male presenting with follow-up for multiple conditions including gout, dyslipidemia, dizziness, and a dilated ascending aorta. The patient has a history of gout, for which he is taking allopurinol 300 mg daily as a preventative measure. He reports that he has not experienced a gout attack for several months since starting the medication. He also has dyslipidemia and is currently on atorvastatin 40 mg for cholesterol management. The patient adheres to his medication regimen and denies any history of smoking or alcohol use. The patient experiences episodes of dizziness, particularly when standing up quickly, which he describes as feeling disoriented and out of touch with his surroundings. He has been advised to move slowly to prevent these episodes. A previous echocardiogram revealed a mildly dilated ascending aorta measuring 4.3 cm. The patient is being referred to cardiology for further evaluation and management of this condition. [facility] Medical History (Updated 01/29/25 @ 10:12 by Nathalie Damon MD) Rogers's cyst of knee Dyslipidemia Left sided lacunar infarction Left ventricular outflow tract obstruction BPH (benign prostatic hyperplasia) Podagra HLD (hyperlipidemia) Atypical chest pain Surgical History No history of previous surgery Family History Mother No problems noted. Father No problems noted. Social History Housing: Apartment Alcohol intake: never Patient Tobacco Use Status: Never used Tobacco e-Cigarette/Vaping Use: Never Used Second Hand Smoke Exposure: No service: No Current occupational status: disabled Cognitive needs: No Hearing needs: No Vision needs: No Questionnaire PHQ-9 Over the last 2 weeks, how often have you been bothered by any of the following problems? 1. Little interest or pleasure in doing things: not at all 2. Feeling down, depressed, or hopeless: not at all 3. Trouble falling or staying asleep, or sleeping too much: not at all 4. Feeling tired or having little energy: not at all 5. Poor appetite or overeating: not at all 6. Feeling bad about yourself - or that you are a failure or have let yourself or your family down: not at all 7. Trouble concentrating on things, such as reading the newspaper or watching television: not at all 8. Moving or speaking so slowly that other people could have noticed. Or the opposite - being so fidgety or restless that you have been moving around a lot more than usual: not at all 9. Thoughts that you would be better off or of hurting yourself in some way: not at all Total score: 0 Depression Screening Interpretation: Negative Depression Screening Done: Yes 47278 - PHQ-9 Billing: Yes Source: Developed by Drs. Santos Celestin, Jennie Mendez, Guillermo Leonard and colleagues, with an educational nicolas from [employer]. Thrive Questionnaire Date Thrive assessed: 08/19/24 I am a: Patient What is your living situation today?: I have a steady place to live Within the past 12 months, did the food you bought not last and you didn't have the money to get more?: Never true Within the past 12 months, did you worry whether your food would run out before you got money to buy more?: Never true Do you have trouble paying for medicines?: No Do you have trouble getting transportation to medical appointments?: No Do you have trouble paying your heating and electricity bill?: No Do you have trouble taking care of your child, family member or friend?: No Do you have trouble with day-to-day activities such as bathing, preparing meals, shopping, managing finances, etc.?: No Are you currently unemployed and looking for a job?: No Are you interested in more education?: No Please select the resources that you would like help with: None Currently or been in a relationship where the following occur: No concerns reported THRIVE Score: 0 AUDIT C Alcohol Use Questionnaire (AUDIT-C) 1. How often do you have a drink containing alcohol?: Monthly or less 2. How many drinks containing alcohol do you have on a typical day when you are drinking?: 1 or 2 3. How often do you have six or more drinks on one occasion?: Never Total Score: 1 Score Reviewed/Action Taken: No DANISH-7 AMB Questionnaire DANISH-7 Date DANISH - 7 assessed: 08/19/24 Feeling nervous, anxious, or on edge: 0 = Not at all Not being able to stop or control worryin = Not at all Worrying too much about different things: 0 = Not at all Trouble relaxin = Not at all Being so restless that it is hard to sit still: 0 = Not at all Becoming easily annoyed or irritable: 0 = Not at all Feeling afraid as if something awful might happen: 0 = Not at all Total DANISH-7 score (0-4 normal; 5-9 mild; 10-14 moderate; 15-21 severe): 0 Source: Developed by Drs. Santos Celestin, Jennie Mendez, Guillermo Leonard and colleagues, with an educational nicolas from [employer]. DANISH-7 Assessment Billing DANISH-7 Assessment Tool: DANISH-7 Assessment 63739 Review of Systems Const All systems reviewed & are unremarkable except as noted in HPI and below Card Denies chest pain at rest, Denies chest pain with activity, Denies edema, Denies irregular heart rhythm, Denies claudication, Denies dyspnea, Denies dyspnea on exertion, Denies orthopnea, Denies paroxysmal nocturnal dyspnea and Denies slow heart rate Resp Denies cough, Denies dyspnea and Denies dyspnea on exertion GI Denies abdominal pain, Denies change in bowel habits, Denies excessive flatus, Denies nausea and Denies vomiting Physical exam (Primary Care) Vital Signs: Last Vital Signs Temp 97.1 F 01/26/25 17:10 Pulse 75 01/26/25 17:10 Resp 18 01/26/25 17:10 BP 100/62 01/26/25 17:10 Pulse Ox 96 01/26/25 17:10 Oxygen Delivery Method Room Air 01/26/25 17:10 BMI result Body Mass Index 27.2 Tobacco/Smoking Status: Tobacco use Status Tobacco use date assessed 01/26/25 01/26/25 17:16 Patient Tobacco Use Status Never used Tobacco 01/26/25 17:16 e-Cigarette/Vaping Use Never Used 01/26/25 17:16 PHQ-9: PHQ-9 Score PHQ-9: Total score 0 01/26/25 17:42 Depression Screening Interpretation: Negative Thrive Assessment: Date of Thrive Assessment Date Thrive assessed 08/19/24 01/26/25 17:16 Currently or been in a relationship where the following occur: No concerns reported Resp Effort & Inspection: normal respiratory effort Auscultation: clear to auscultation bilaterally Cardio Jugular venous distension: no JVD Rate: regular rate Rhythm: regular rhythm Heart sounds: S1 normal heart sound present and S2 normal heart sound present Extrem General: Yes full ROM Coding Level of Care Code Est Pt Level 4 (22793) Complex EM visit Add On G2211 Diagnoses Ascending aorta dilation I77.810 Dyslipidemia E78.5 Acute idiopathic gout of right elbow M10.021 Gout site: elbow Gout etiology: idiopathic Chronicity: acute Laterality: right Dizziness R42 Cerebrovascular accident (CVA) of right thalamus I63.9 Additional Codes DANISH-7 Assessment Billing - DANISH-7 Assessment Tool: DANISH-7 Assessment 26026 ([id number]) PHQ-9 - 86326 - PHQ-9 Billing: Yes ([id number]) Time Spent (min) 23 Assessment & Plan Assessment & Plan (1) Ascending aorta dilation: Code(s): I77.810 - Thoracic aortic ectasia Category: Medical (2) Dyslipidemia: Code(s): E78.5 - Hyperlipidemia, unspecified Category: Medical (3) Gout: Code(s): M10.9 - Gout, unspecified Category: Medical Qualifiers: Gout site: elbow Gout etiology: idiopathic Chronicity: acute Latera lity: right Qualified Code(s): M10.021 - Idiopathic gout, right elbow (4) Dizziness: Code(s): R42 - Dizziness and giddiness Category: Medical (5) Cerebrovascular accident (CVA) of right thalamus: Code(s): I63.9 - Cerebral infarction, unspecified Category: Medical Plan Plan Patient was informed and verbally consented to the use of an ambient scribe for clinic note documentation during this visit. 1. Gout, unspecified M10.9 The patient is currently managing gout with allopurinol 300 mg daily, which has been effective in preventing attacks for several months. 2. Dyslipidemia- LDL goal is less than 70. 3. Ascending aortic dilation-Refer to Cardiology. 4- CVA-no residual deficit. Continue secondary prophylaxis with Aspirin. 5. Dizziness-most likely a vasovagal reaction. Monitor symptoms. Orders: Orders Uric Acid 01/26/25 M10.9 - Gout, unspecified Lipid Panel 01/26/25 E78.5 - Hyperlipidemia, unspecified CA echo transthoracic complete 01/26/25 I77.810 - Thoracic aortic ectasia Vitamin D 25-OH Total 01/26/25 E55.9 - Vitamin D deficiency, unspecified [place]. 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
== END 2025-01-26 17:48 | disposition home or self-care (01) ==
LOC: HO.HMCH 17:04
PROVIDERS: PCP Internal Medicine; Visit Provider Internal Medicine
DX: I77.810 Thoracic aortic ectasia (principal); E78.5 Hyperlipidemia, unspecified; I63.9 Cerebral infarction, unspecified; M10.021 Idiopathic gout, right elbow; R42 Dizziness and giddiness

== ENCOUNTER → 2025-01-26 17:04 | Outpatient (BNVA) | payer MEDICARE, MEDICAID, SELFPAY | PROVIDERS: PCP Internal Medicine; Visit Provider Internal Medicine | DX: I77.810 Thoracic aortic ectasia (principal); R42 Dizziness and giddiness; E78.5 Hyperlipidemia, unspecified; M10.021 Idiopathic gout, right elbow; I63.9 Cerebral infarction, unspecified | CPT/HCPCS: 96127; 99212 ==

== ENCOUNTER 2025-02-02 07:25 | Outpatient (REF) | payer MEDICARE, MEDICAID, SELFPAY ==
--- OUTSIDE RECORDS SUMMARY | 2013-07-13 11:42 | XMS_ITS | Continuity of Care Document ---
Author Organization [facility] Address [address] [address] Phone Care Team Providers Care Physician Relations Representative Name Role Phone [place] Awilda FONSECA Unavailable Unavailable Advance Directives Directive Yes / No Effective Date File Name No Information Encounters Encounter Description Practice Location Reason(s) For Visit Diagnoses Date Provider [facility], [address] [address], [place], [place], [id number], tel:[phone] No Information 2013 [place]. [address] [place], [address]. tel:[phone] Family History Family Member Type Diagnosis Age At Onset No Information Payers Payer name Insurance type Covered libertarian ID Authoriza tion(s) No Information Social History Type Description Quantity Date Captured Comments Sex Male Smoking Status No Information Chief Complaint And Reason For Visit No Information History Of Present Illness Encounter Date Complaint History Of Prese nt Illness No Information Instructions Date Instruction Additional Infor mation No Information Assessments Type Assessment Date No Information
--- OUTSIDE RECORDS SUMMARY | 2025-02-02 07:29 | XMS_ITS | Patient Health Record ---
Author Organization [facility] Address [address] [place] [address] Care Team Providers Care Senior Research Analyst Name Role Phone Nathalie Alejo Primary Care Provider Santos Davison Unavailable [phone] Reason For Referral No Information Plan Of Treatment No Information Insurance Providers Payer Name Payer Address Payer Phone Subscriber Number Group Number Insured Name Patient Relationship to Insured Coverage Start Date Coverage End Date [facility] [address] [address] [place] [phone] [id number] ARY URIAS Self - patient is the insured
[2025-02-02 08:42] LABS: Alanine Aminotransferase 20 U/L (0-40); Albumin Level 4.5 g/dL (3.5-5.0); Alkaline Phosphatase 98 U/L (39-117); Anion Gap 11 (12-20); Aspartate Amino Transferase 31 U/L (5-37); Blood Urea Nitrogen 20 mg/dL (9-16); Calcium 9.4 mg/dL (8.4-10.2); Carbon Dioxide 28 mmol/L (22-29); Chloride 109 mmol/L (96-108); Cholesterol 212 mg/dL (<200); Estimated Glomerular Filt Rate > 60; HDL Cholesterol 40 mg/dL (>40); Potassium 3.9 mmol/L (3.3-5.1); Sodium 144 mmol/L (135-145); Total Protein 7.1 g/dL (6.5-8.0); Triglycerides 181 mg/dL (<150)
[2025-02-02 10:52] LABS: Uric Acid 5.6 mg/dL (3.4-7.0)
== END 2025-02-02 07:26 | disposition home or self-care (01) ==
LOC: HO.LAB 07:25
PROVIDERS: PCP Internal Medicine; Visit Provider Internal Medicine
DX: I77.810 Thoracic aortic ectasia (principal); M10.9 Gout, unspecified; E78.5 Hyperlipidemia, unspecified; E55.9 Vitamin D deficiency, unspecified
CPT/HCPCS: 36415; 80053; 80061; 82306; 84550

== ENCOUNTER → 2025-03-01 11:00 | Outpatient (REF) | payer MEDICARE, MEDICAID, SELFPAY ==
--- NOTE | 2025-03-01 11:03 | CA_ITS ---
Transthoracic Echocardiogram Patient (Last, First, Middle): Dayton Cruz L Gender: M Date of : 1940 Age: 84 Procedure Date: 03/01/2025 Procedure Type: Transthoracic Echocardiogram Location: OP Height: 182.88 cm Weight: 90.72 kg BSA: 2.13 m2 Heart Rate: bpm BP: 100 / 62 mmHg Retail Commission Sales Associate: ALIZE Referring MD: Nathalie Damon MD Trackman: Junior Brown MD Symptoms: I77.810 - Thoracic aortic ectasia Study Quality: Adequate ECG Rhythm: Sinus Conclusions: - 1. Normal LV ejection fraction of 60 65% with impaired relaxation filling pattern 2. Mild aortic stenosis and regurgitation 3. Normal measured RV systolic pressure 4. Mildly dilated ascending aorta at 4.3 cm 5. No gross pericardial effusion Findings Left Ventricle Normal left ventricular size, thickness, and systolic function. The visually estimated ejection fraction is between 60-65%. Spectral Doppler is indicative of an impaired relaxation filling pattern. There is moderate septal asymmetric hypertrophy. Right Ventricle Normal right ventricular cavity size and systolic function. Atria The left atrium is normal in size. There is no evidence of interatrial shunt. The right atrium is normal in size. Aortic Valve The aortic valve was not well visualized. There is mild calcification of the aortic valve. There is mild aortic valve stenosis. The peak aortic gradient is 22 mmHg.The mean gradient is 13 mmHg. The aortic valve area is 2.06 cm2. There is mild aortic valve regurgitation. Mitral Valve There is mild anterior and moderate posterior mitral leaflet thickening. There is mild mitral annular calcification. There is trace mitral valve regurgitation. There is no mitral valve stenosis. Pulmonic Valve The pulmonic valve was not well visualized. Tricuspid Valve Likely normal tricuspid valve structure and function. There is trace tricuspid valve regurgitation. The right ventricular systolic pressure is normal. The right ventricular systolic pressure is 29 mmHg. Normal right atrial pressure. There is no evidence of pulmonary hypertension. Great Vessels The pulmonary artery was not well visualized. There is mild dilatation of the ascending aorta measuring 4.30 cm. Venous The inferior vena cava is normal in size and collapses greater than 50% with inspiration. Pericardium/Pleural There is no evidence of pericardial effusion. Prior Study Comparison No significant change compared to prior study dated: 11/27/2023. Measurements 2D Linear Measurements IVSd: 1.15 0.6-0.9/0.6-1.0 cm LVIDd: 4.58 3.9-5.3/4.2-5.9 cm LVIDd Index: 2.15 2.4-3.2/2.2-3.1 cm/m2 LVIDs: 2.51 2.0-3.6 cm LVPWd: 1.13 0.7-1.1 cm LA Diam: 3.00 2.7-3.8/3.0-4.0 cm LAIDs Index: 1.41 1.5-2.3 cm/m2 LV Mass: 235.83 67-162/88-224 g LV Mass Index: 110.72 43-95/49-115 g/m2 LVOT Diam: 1.80 3.0+(-)1.3 cm Mitral Valve MV Pk E: 0.49 MV PK A: 1.15 MV Decel Time: 244.00 E/A: 0.40 E'Lateral: 5.55 E'Medial: 3.26 E/E' Med: 15.10 E/E' Lat: 8.90 PHT: 71.00 MVA PHT: 3.10 Decel Fleming: 2.02 Aortic Valve AoV Pk Ba: 2.32 AoV Mn Ba: 1.70 AoV VTI: 0.50 AoV Pk Grad: 22.00 Aov Mn Grad: 13.00 GE Cont.VTI: 2.06 AI Pk Ba: 4.74 AI Fleming: 2.15 LVOT LVOT Pk Ba: 1.75 LVOT Mn Ba: 1.25 LVOT VTI: 0.41 LVOT Pk Grad: 12.00 LVOT Mn Grad: 7.00 LVOT Diam: 1.80 LVOT Area: 2.54 Diastolic Function MV Pk E: 0.49 MV Pk A: 1.15 E/A: 0.40 E'Medial: 3.26 E/E' Med: 15.10 E' Laterial: 5.55 E/E' Lat: 8.90 Right Ventricle TAPSE (mm): 19.00 TVS' Ba: 13.40 Tricuspid Valve TR Pk Ba: 2.29 TR Pk Grad: 21.00 RA Press: 8.00 RVSP: 29.00 Great Vessels Aorta Sinus of Valsalva: 4.39 2.0-3.[address] Ridge: 3.77 1.7-3.4 cm Ao Asc: 4.30 2.1-3.4 cm Pulmonary Veins Pulm Vein S/D 2.10 Updated in Other Vendor System with Status of Final Junior Brown MD electronically signed on 03/01/2025 12:59:21 PM with status of Final
--- OUTSIDE RECORDS SUMMARY | 2025-03-01 14:42 | XMS_ITS | Patient Health Record ---
Author Organization [facility] Address [address] [place] [address] Care Team Providers Care Denture Packer Name Role Phone Nathalie Alejo Primary Care Provider Santos Davison Unavailable [phone] Reason For Referral No Information Plan Of Treatment No Information Insurance Providers Payer Name Payer Address Payer Phone Subscriber Number Group Number Insured Name Patient Relationship to Insured Coverage Start Date Coverage End Date [facility] [address] [address] [place] [address] [id number] ARY URIAS Self - patient is the insured
== END ==
LOC: HO.CARD 11:00
PROVIDERS: PCP Internal Medicine; Visit Provider Internal Medicine
DX: I77.810 Thoracic aortic ectasia (principal)
CPT/HCPCS: 93306

== ENCOUNTER → 2025-03-01 11:03 | Outpatient (BNV) | payer MEDICARE, MEDICAID, SELFPAY | PROVIDERS: PCP Internal Medicine; Visit Provider Internal Medicine Cardiovascular Disease | DX: I42.2 Other hypertrophic cardiomyopathy (principal); I35.0 Nonrheumatic aortic (valve) stenosis; I35.1 Nonrheumatic aortic (valve) insufficiency; I77.810 Thoracic aortic ectasia | CPT/HCPCS: 93306 ==

== ENCOUNTER 2025-03-13 13:39 | Outpatient (AMB) | payer MEDICARE, MEDICAID, SELFPAY ==
[2025-03-13 13:52] VITALS: BP 132/70; PULSE 102; O2SAT 96; BMI 27.1
--- NOTE | 2025-03-13 13:52 | MHC.PC.OV ---
Vital Signs 03/13/25 13:52 Height 6 ft Weight 199 lb 8 oz BMI 27.1 BP 132/70 Blood Pressure Location Lt brachial Position Sitting Pulse 102 H Pulse Source Pulse Oximeter Pulse Oximetry (%) 96 Oxygen Delivery Method Room Air Intake Visit Reasons: follow up Radiation Oncology Therapist Required: No Accompanied by: Self / Same As Patient Allergies Iodinated Contrast Media (IV CONTRAST) Allergy (Mild, Verified 03/13/25 14:01) PATIENT STATES HISTORY OF IV REACTION FROM [facility] terazosin Adverse Reaction (Intermediate, Verified 03/13/25 14:01) blurry vision Penicillins Adverse Reaction (Mild, Verified 03/13/25 14:01) WEAKNESS Medication List - Last Reconciled 03/13/25 by Nathalie aDmon MD allopurinol 300 mg PO DAILY aspirin 81 mg PO DAILY 90 days atorvastatin 40 mg PO BEDTIME 90 days cholecalciferol (vitamin D3) 25 mcg PO DAILY 90 days prednisone 20 mg PO DAILY 10 days Tobacco use date assessed: 03/13/25 Fall risk assessment: No Falls in past year Last assessed Fall Risk: 03/13/25 Dental Screening Dental Screen Date: 03/13/25 Did you have a dental visit in the last 12 months?: No Did you have a dental problem in the last 6 months where you did not have access to dental care?: No Was dental information given to patient?: No HPI HPI Comments History of Present Illness Details This is an 84-year-old male with history of cerebrovascular accident of right thalamus with 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 It does not look infected. Has elevated cholesterol and statins was sent. Also vitamin-D sent. [facility] Medical History Rogers's cyst of knee Dyslipidemia Left sided lacunar infarction Left ventricular outflow tract obstruction BPH (benign prostatic hyperplasia) Podagra HLD (hyperlipidemia) Atypical chest pain Surgical History No history of previous surgery Family History Mother No problems noted. Father No problems noted. Social History Housing: Apartment Alcohol intake: never Patient Tobacco Use Status: Never used Tobacco e-Cigarette/Vaping Use: Never Used Second Hand Smoke Exposure: No service: No Current occupational status: disabled Cognitive needs: No Hearing needs: No Vision needs: No Questionnaire PHQ-9 Over the last 2 weeks, how often have you been bothered by any of the following problems? 1. Little interest or pleasure in doing things: not at all 2. Feeling down, depressed, or hopeless: not at all 3. Trouble falling or staying asleep, or sleeping too much: not at all 4. Feeling tired or having little energy: not at all 5. Poor appetite or overeating: not at all 6. Feeling bad about yourself - or that you are a failure or have let yourself or your family down: not at all 7. Trouble concentrating on things, such as reading the newspaper or watching television: not at all 8. Moving or speaking so slowly that other people could have noticed. Or the opposite - being so fidgety or restless that you have been moving around a lot more than usual: not at all 9. Thoughts that you would be better off or of hurting yourself in some way: not at all Total score: 0 Depression Screening Interpretation: Negative Depression Screening Done: Yes 02951 - PHQ-9 Billing: Yes Source: Developed by Drs. Santos Celestin, Jennie Mendez, Guillermo Leonard and colleagues, with an educational nicolas from [employer]. Thrive Questionnaire Date Thrive assessed: 08/19/24 I am a: Patient What is your living situation today?: I have a steady place to live Within the past 12 months, did the food you bought not last and you didn't have the money to get more?: Never true Within the past 12 months, did you worry whether your food would run out before you got money to buy more?: Never true Do you have trouble paying for medicines?: No Do you have trouble getting transportation to medical appointments?: No Do you have trouble paying your heating and electricity bill?: No Do you have trouble taking care of your child, family member or friend?: No Do you have trouble with day-to-day activities such as bathing, preparing meals, shopping, managing finances, etc.?: No Are you currently unemployed and looking for a job?: No Are you interested in more education?: No Please select the resources that you would like help with: None Currently or been in a relationship where the following occur: No concerns reported THRIVE Score: 0 AUDIT C Alcohol Use Questionnaire (AUDIT-C) 1. How often do you have a drink containing alcohol?: Never 3. How often do you have six or more drinks on one occasion?: Never Total Score: 0 Score Reviewed/Action Taken: No DANISH-7 AMB Questionnaire DANISH-7 Date DANISH - 7 assessed: 08/19/24 Feeling nervous, anxious, or on edge: 0 = Not at all Not being able to stop or control worryin = Not at all Worrying too much about different things: 0 = Not at all Trouble relaxin = Not at all Being so restless that it is hard to sit still: 0 = Not at all Becoming easily annoyed or irritable: 0 = Not at all Feeling afraid as if something awful might happen: 0 = Not at all Total DANISH-7 score (0-4 normal; 5-9 mild; 10-14 moderate; 15-21 severe): 0 Source: Developed by Drs. Santos Celestin, Jennie Mendez, Guillermo Leonard and colleagues, with an educational nicolas from [employer]. DANISH-7 Assessment Billing DANISH-7 Assessment Tool: DANISH-7 Assessment 94607 Review of Systems Const All systems reviewed & are unremarkable except as noted in HPI and below Card Denies chest pain at rest, Denies chest pain with activity, Denies edema, Denies irregular heart rhythm, Denies claudication, Denies dyspnea, Denies dyspnea on exertion, Denies orthopnea, Denies paroxysmal nocturnal dyspnea and Denies slow heart rate Resp Denies cough, Denies dyspnea and Denies dyspnea on exertion GI Denies abdominal pain, Denies change in bowel habits, Denies excessive flatus, Denies nausea and Denies vomiting Physical exam (Primary Care) Vital Signs: Last Vital Signs Pulse 102 H 03/13/25 13:52 BP 132/70 03/13/25 13:52 Pulse Ox 96 03/13/25 13:52 Oxygen Delivery Method Room Air 03/13/25 13:52 BMI result Body Mass Index 27.1 Tobacco/Smoking Status: Tobacco use Status Tobacco use date assessed 03/13/25 03/13/25 13:59 Patient Tobacco Use Status Never used Tobacco 03/13/25 13:59 e-Cigarette/Vaping Use Never Used 03/13/25 13:59 PHQ-9: PHQ-9 Score PHQ-9: Total score 0 03/13/25 14:20 Depression Screening Interpretation: Negative Thrive Assessment: Date of Thrive Assessment Date Thrive assessed 08/19/24 03/13/25 13:59 Currently or been in a relationship where the following occur: No concerns reported Resp Effort & Inspection: normal respiratory effort Auscultation: clear to auscultation bilaterally Cardio Jugular venous distension: no JVD Rate: regular rate Rhythm: regular rhythm Heart sounds: S1 normal heart sound present and S2 normal heart sound present Extrem General: Yes full ROM Office Procedures Flu Questionnaire Does the patient have a severe egg allergy?: No Does the patient have severe life threatening allergies?: No Does the patient have a fever or illness today?: No Has the patient ever had Guillain-[place]ts[place] Syndrome?: No Has the patient ever had any past reaction to a flu shot?: No Immunizations Fluarix (PF) 45 mcg (15 mcg x 3)/0.5 mL IM syringe Performing Provider: Nathalie Damon MD Performing Location: [facility] Administered by: Nicole Washington CMA on 03/13/25 14:20 Dose Route Admin Location Dispensed Lot Number Expiration Date [facility] [employer] 0.5 mL IM Left Deltoid 0.5 mL [id number] 11/07/25 [id number] [place] VIS Given Date VIS Provided VIS Publication Date 03/13/25 Single Vaccine 24 Eligibility Eligibility Date Funding Source Not [facility] Eligible 03/13/25 Private pneumoc 20-ariella conj-dip cr(PF) 0.5 mL IM syringe Performing Provider: Nathalie Damon MD Performing Location: [facility] Administered by: Nicole Washington CMA on 03/13/25 14:20 Dose Route Admin Location Dispensed Lot Number Expiration Date [facility] [employer] 0.5 mL IM Left Deltoid 0.5 mL [id number] 01/09/26 [employer] Total Dispensed Waste 0.5 mL 0 % VIS Given Date VIS Provided VIS Publication Date 03/13/25 Single Vaccine 24 Eligibility Eligibility Date Funding Source Not [facility] Eligible 03/13/25 Private Coding Level of Care Code Est Pt Level 4 (76415) Diagnoses Cerebrovascular accident (CVA) of right thalamus I63.9 Dyslipidemia E78.5 Hypovitaminosis D E55.9 Gout M10.9 Additional Codes DANISH-7 Assessment Billing - DANISH-7 Assessment Tool: DANISH-7 Assessment 59204 ([id number]) PHQ-9 - 22439 - PHQ-9 Billing: Yes ([id number]) Time Spent (min) 22 Assessment & Plan Assessment & Plan (1) Cerebrovascular accident (CVA) of right thalamus: Code(s): I63.9 - Cerebral infarction, unspecified Category: Medical (2) Dyslipidemia: Code(s): E78.5 - Hyperlipidemia, unspecified Category: Medical (3) Hypovitaminosis D: Code(s): E55.9 - Vitamin D deficiency, unspecified Category: Medical (4) Gout: Code(s): M10.9 - Gout, unspecified Category: Medical Plan Amoxicillin sent. X-ray ordered. Orders: Orders XR knee LT 2V Today M25.562 - Pain in left knee Pneumococcal 20 Immunization Today Z23 - Encounter for immunization Uric Acid Today M10.9 - Gout, unspecified Lipid Panel Today E78.5 - Hyperlipidemia, unspecified Influenza [id number] Immunization Today Z23 - Encounter for immunization Medications: New cetirizine (All Day Allergy (cetirizine)) 10 mg PO DAILY PRN 90 tabs 0RF allergy symptoms 90 days amoxicillin 500 mg PO BID 10 tabs 0RF 5 days Refilled atorvastatin 40 mg PO BEDTIME 90 tabs 1RF 90 days cholecalciferol (vitamin D3) 25 mcg PO DAILY 90 caps 1RF 90 days E55.9 - Vitamin D deficiency, unspecified
== END 2025-03-13 14:19 | disposition home or self-care (01) ==
LOC: HO.HMCH 13:40
PROVIDERS: PCP Internal Medicine; Visit Provider Internal Medicine
DX: I63.9 Cerebral infarction, unspecified (principal); E78.5 Hyperlipidemia, unspecified; E55.9 Vitamin D deficiency, unspecified; M10.9 Gout, unspecified; Z23 Encounter for immunization

== ENCOUNTER → 2025-03-13 13:39 | Outpatient (BNVA) | payer MEDICARE, MEDICAID, SELFPAY | PROVIDERS: PCP Internal Medicine; Visit Provider Internal Medicine | DX: I63.9 Cerebral infarction, unspecified (principal); E78.5 Hyperlipidemia, unspecified; E55.9 Vitamin D deficiency, unspecified; M10.9 Gout, unspecified; Z23 Encounter for immunization; Z13.31 Encounter for screening for depression; Z13.39 Encounter for screening examination for other mental health and behavioral disorders | CPT/HCPCS: 90471; 90656; 90677; 96127; 99212 ==

== ENCOUNTER 2025-03-14 15:20 | Outpatient (REF) | payer MEDICARE, MEDICAID, SELFPAY ==
--- OUTSIDE RECORDS SUMMARY | 2013-07-13 10:42 | XMS_ITS | Continuity of Care Document ---
Author Organization [facility] Address [address] [address] Phone Care Team Providers Care Conference Organizer Name Role Phone [place] Aw[place] FONSECA Unavailable Unavailable Advance Directives Directive Yes / No Effective Date File Name No Information Encounters Encounter Description Practice Location Reason(s) For Visit Diagnoses Date Provider [facility], [address] [address], [place], [place], [id number], tel:[phone] No Information 2013 [place]. [address] [place], [address]. tel:[phone] Family History Family Member Type Diagnosis Age At Onset No Information Payers Payer name Insurance type Covered democrat ID Authoriza tion(s) No Information Social History Type Description Quantity Date Captured Comments Sex Male Smoking Status No Information Chief Complaint And Reason For Visit No Information History Of Present Illness Encounter Date Complaint History Of Prese nt Illness No Information Instructions Date Instruction Additional Infor mation No Information Assessments Type Assessment Date No Information
--- NOTE | ~2025-03-14 | XR_ITS ---
EXAMINATION: XR KNEE, LEFT CLINICAL INFORMATION: M25.562 - Pain in left knee COMPARISON: September 14, 2007 is not available on PACS. TECHNIQUE: AP and lateral views of the left knee. FINDINGS: Joint space narrowing involving mostly the medial compartment with sclerosis along the articular surface. Chondrocalcinosis in the menisci. Small exostosis at the anterior superior and to a lesser extent anterior inferior patella. Vascular calcifications. No suprapatellar bursa joint effusion. No acute fracture or dislocation. 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 Enthesopathy, quadriceps tendon and patellar tendon insertion. Atherosclerosis disease, peripheral. Electronically signed by: Geovanni Sanabria MD 03/14/2025 03:46 PM EST [facility]
[2025-03-14 17:41] LABS: Cholesterol 205 mg/dL (<200); HDL Cholesterol 35 mg/dL (>40); Triglycerides 294 mg/dL (<150); Uric Acid 6.3 mg/dL (3.4-7.0)
--- OUTSIDE RECORDS SUMMARY | 2025-03-14 18:10 | XMS_ITS | Patient Health Record ---
Author Organization [facility] Address [address] [place] [address] Care Team Providers Care Industrial Staff Nurse Name Role Phone Nathalie Alejo Primary Care Provider Santos Davison Unavailable [phone] Reason For Referral No Information Plan Of Treatment No Information Insurance Providers Payer Name Payer Address Payer Phone Subscriber Number Group Number Insured Name Patient Relationship to Insured Coverage Start Date Coverage End Date [facility] [address] [address] [place] [address] [phone] [id number] ARY URIAS Self - patient is the insured
== END 2025-03-14 15:21 | disposition home or self-care (01) ==
LOC: HO.XRAY 15:20
PROVIDERS: PCP Internal Medicine; Visit Provider Internal Medicine
DX: M25.562 Pain in left knee (principal); M10.9 Gout, unspecified; E78.5 Hyperlipidemia, unspecified
CPT/HCPCS: 36415; 73560; 80061; 84550

== ENCOUNTER → 2025-03-14 15:33 | Outpatient (BNV) | payer MEDICARE, MEDICAID, SELFPAY | PROVIDERS: PCP Internal Medicine; Visit Provider Radiology Diagnostic Radiology | DX: M17.12 Unilateral primary osteoarthritis, left knee (principal); M76.52 Patellar tendinitis, left knee; I70.202 Unspecified atherosclerosis of native arteries of extremities, left leg | CPT/HCPCS: 73560 ==